=== PATIENT | female | born 1985 | race African-American/Black ===

== ENCOUNTER → 2016-07-05 | Outpatient (CLI) | payer OTHER ==
[~2016-07-05] MED LIST: ACET-1311 PO; BCPILLS PO; IBUP600T44 PO; MELA1TAB5 PO; OMEG10007 PO; ONDA4TAB10 SL; PRENTAB26 PO; PRT/20 PO; VITACAP26 PO
== END | disposition home or self-care (01) ==
LOC: C.PAPS 12:30
PROVIDERS: ATTEND Physician Assistant
DX: Z12.4 Encounter for screening for malignant neoplasm of cervix (principal)

== ENCOUNTER → 2016-07-05 | Outpatient (CLI) | payer OTHER ==
[2016-07-07 02:35] LABS: CHLAMYDIA TRACH RNA*** NOT DETECTED (NOT DETECTED); GC (NEIS GONORRHOEAE)RNA** NOT DETECTED (NOT DETECTED)
== END | disposition home or self-care (01) ==
LOC: C.LABSPEC 11:14
PROVIDERS: ATTEND Physician Assistant
DX: Z01.419 Encounter for gynecological examination (general) (routine) without abnormal findings (principal)

== ENCOUNTER 2016-12-21 09:11 | Emergency (ER) | payer OTHER ==
[~2016-12-21] VITALS: Ht 165.1 cm; Wt 64.4 kg
[~2016-12-21 09:11] MED LIST changes: -BCPILLS PO; -MELA1TAB5 PO; -OMEG10007 PO; -ONDA4TAB10 SL; -PRT/20 PO; -VITACAP26 PO
[2016-12-21 09:14] VITALS: TEMP 36.9; Ht 165.1 cm; Wt 64.4 kg
[2016-12-21 09:58] LABS: BASO % 0.4 %; BASO ABS # 0.02 K/uL (0-0.2); COMPLETE YES; EOS % 3.2 %; IG% 0.2 %; LYMPH % 38.4 %; MEAN CELL VOLUME 94.1 fL (80-100); MEAN CORPUSCULAR HEMOGLOBIN 31.7 pg (25-34); MEAN CORPUSCULAR HGB CONC 33.7 g/dl (32-36); MONO % 6.3 %; NEUT % 51.5 %; PLATELET COUNT 262 K/uL (130-400); RED BLOOD COUNT 4.04 M/uL (4.2-5.4); WHITE BLOOD COUNT 4.95 K/uL (4.8-10.8)
[2016-12-21] MEDS ORDERED: SODIUM CHLORIDE 0.9% 1000ML 1,000 ML IV STA (10:00)
[2016-12-21] MEDS ORDERED: ONDANSETRON INJ 2 MG/ML 2 ML VIAL IV STA (10:00)
[2016-12-21 10:18] LABS: BUN/CREATININE RATIO 12.7 (10-20); CALCIUM 9.5 mg/dl (8.5-10.1); CREATININE 0.78 mg/dl (0.60-1.20); POTASSIUM 3.7 mmol/L (3.5-5.1)
[2016-12-21 10:21] LABS: ALB/GLOB RATIO 1.1 (0.9-2)
[2016-12-21 10:45] LABS: PREG INTERNAL NEGATIVE QC NEG CLEAR BACKGROUND; PREG INTERNAL POSITIVE QC POS CONTROL LINE
[2016-12-21] MEDS ORDERED: ALUMINUM/MAGNESIUM SUSP 30 ML UDC PO STA (11:01)
[2016-12-21] MEDS ORDERED: LIDOCAINE HCL 2% VISC SOLN 20 ML UDC PO STA (11:01)
[2016-12-21 11:21] LABS: URINE APPEARANCE CLEAR (CLEAR); URINE BILIRUBIN NEG (NEG); URINE COLOR DK YELLOW; URINE NITRITE NEG (NEG); URINE PH 7.5 (4.5-7.5); URINE SPECIFIC GRAVITY 1.023 (1.000-1.030); UROBILINOGEN NEG (NEG); ZZUR CULT IF INDIC CLEAN CATCH NO
[2016-12-21 11:24] LABS: MANUAL MICROSCOPIC REQUIRED? NO; REVIEW REQ? NO
--- NOTE | 2016-12-21 11:28 | DIAGNOSTIC IMAGING REPORT ---
PA CHEST WITH ABDOMINAL SERIES CLINICAL HISTORY: Vomiting. FINDINGS: A PA chest radiograph is obtained. No prior studies are available for comparison at the time of dictation. The cardiomediastinal silhouette is unremarkable. The lungs and pleural spaces are clear. No pneumothorax is seen. The bony thorax is grossly intact. Supine and erect abdominal radiographs are obtained. No prior studies are available for comparison at the time of dictation. There is a nonobstructed abdominal bowel gas pattern. Ill-defined radiodense material projecting over the colon likely represents a hypodense ingestion. No evidence of intraperitoneal free air is seen. There nonobstructing renal calculi are suspected.. The lumbosacral spine and bony pelvis appear intact. IMPRESSION: 1. No active disease in the chest. 2. Nonobstructed abdominal bowel gas pattern. 3. Suspect nonobstructing renal calculi. Electronically signed by: Fidencio Eisenberg M.D. 12/21/2016 11:27 AM Dictated Date/Time: 12/21/2016 11:26 AM
[2016-12-21] MEDS ORDERED: PRT/20 PO (11:37)
[2016-12-21] MEDS ORDERED: ONDA4TAB10 SL (11:38)
[2016-12-21 12:10] VITALS: BP 108/74; PULSE 78; O2SAT 100
--- NOTE | 2016-12-21 15:02 | Pharmacy Progress Note ---
ED Pharmacist Progress Note Date of Service: Dec 21, 2016. Tamera from [facility] called to ask if the patient's prescription for zofran ODT tablets could be switched to regular as her insurance would not cover the original formulation. I confirmed with Dr. Majano who approved this change. I then called Tamera back at [phone] to relay the information.
--- NOTE | 2016-12-21 16:48 | EMERGENCY ROOM VISIT NOTE ---
History Report prepared by Mariana: Gilda Calloway Under the Supervision of: Dr. Kerwin Majano M.D. First contact with patient: 09:40 Chief Complaint: ABDOMINAL PAIN Stated Complaint: GASTROINTESTIONAL ISSUES Nursing Triage Summary: Abd pain, nausea, vomiting for approx 2 days. Abd pain comes and goes, none currently. History of Present Illness The patient is a 31 year old female who presents to the Emergency Room with complaints of persistent heartburn starting 2 days ago. She has had heartburn before, but never this bad. She states the heartburn is severe. The symptoms worsen with lying down. She has taken femi seltzer and Pepto Bismol to no significant relief. The patient was eating 2 days ago when she felt something get stuck in her throat. She felt like the food had gone down, but her esophagus felt swollen. Since then, anytime she tries to eat or drink, everything has been coming back up. Yesterday, she vomited up a piece of kale that she had eaten the day before. The kale came back up whole and seemingly undigested leading her to think she has low stomach acid. After vomiting yesterday, she has been able to keep some food down. She was able to eat chicken noodle soup. She has not vomited since then. She currently has no appetite and is still feeling nauseous. She has not eaten today. Nothing feels stuck in her esophagus anymore. She denies having any pain anywhere. She denies any fever, diarrhea, hematochezia, melena, urinary symptoms, vaginal discharge, or vaginal bleeding. Her last BM was last night. Her bowel movements have been normal. She has a family history of GERD. She notes that she is used to eating quickly and food seems to get stuck when she is eating slowly. She has not seen a GI doctor. Her menstrual period just ended. It was irregular which she attributes to starting a new control pill. 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 Over the past few months, she has been switching to a vegan diet. Source of History: patient Onset: 2 days ago Position: other (global) Symptom Intensity: severe Quality: other (heartburn) Timing: other (persistent) Modifying Factors (Worsening): other (lying down) Associated Symptoms: + nausea, + vomiting, No fevers, No abdominal pain, No melena, No hematochezia, No diarrhea, No urinary symptoms Note: Pt denies vaginal bleeding/discharge. Review of Systems See HPI for pertinent positives & negatives. A total of 10 systems reviewed and were otherwise negative. Past Medical & Surgical Medical Problems: (1) DVT (deep venous thrombosis) (2) Vaginal delivery Family History Cancer Diabetes mellitus Heart disease Hypertension Lung disease Social History Smoking Status: Never Smoker Marital Status: single Housing Status: lives with family Occupation Status: employed Current/Historical Medications Scheduled Ondasetron Odt (Zofran Odt), 4 MG SL Q6H Pantoprazole (Protonix), 20 MG PO DAILY Allergies Coded Allergies: No Known Allergies (Unverified , 04/20/11) Physical Exam Vital Signs Date Time Temp Pulse Resp B/P (MAP) Pulse Ox O2 Delivery O2 Flow Rate FiO2 12/21/16 12:10 78 16 108/74 100 12/21/16 11:48 82 111/75 99 12/21/16 09:14 36.9 84 16 116/74 97 Room Air Physical Exam Constitutional: Vital signs reviewed. Eyes: Pupils are equal round reactive to light. Conjunctiva are noninjected. ENT: Pharynx is clear without erythema or exudate. Mucous membranes are moist. Neck supple without meningeal signs. Respiratory: Clear to auscultation bilaterally. Breath sounds are equal bilaterally. Cardiovascular: Regular rate and rhythm. No rubs or gallops. GI: Soft, nondistended and nontender. Bowel sounds are present. Musculoskeletal: No peripheral edema. No lower extremity tenderness. Integumentary: No cyanosis. Neurological: The patient is awake and alert. No focal deficits. Psychiatric: Normal affect. Medical Decision & Procedures ER Provider Diagnostic Interpretation: X-ray results as stated below per interpretation by me and the radiologist: PA CHEST WITH ABDOMINAL SERIES CLINICAL HISTORY: Vomiting. FINDINGS: A PA chest radiograph is obtained. No prior studies are available for comparison at the time of dictation. The cardiomediastinal silhouette is unremarkable. The lungs and pleural spaces are clear. No pneumothorax is seen. The bony thorax is grossly intact. Supine and erect abdominal radiographs are obtained. No prior studies are available for comparison at the time of dictation. There is a nonobstructed abdominal bowel gas pattern. Ill-defined radiodense material projecting over the colon likely represents a hypodense ingestion. No evidence of intraperitoneal free air is seen. There nonobstructing renal calculi are suspected.. The lumbosacral spine and bony pelvis appear intact. IMPRESSION: 1. No active disease in the chest. 2. Nonobstructed abdominal bowel gas pattern. 3. Suspect nonobstructing renal calculi. Electronically signed by: Fidencio Eisenberg M.D. 12/21/2016 11:27 AM Dictated Date/Time: 12/21/2016 11:26 AM Laboratory Results 12/21/16 09:40 Red Blood Count 4.04, Mean Corpuscular Volume 94.1, Mean Corpuscular Hemoglobin 31.7, Mean Corpuscular Hemoglobin Concent 33.7, Mean Platelet Volume 11.0, Neutrophils (%) (Auto) 51.5, Lymphocytes (%) (Auto) 38.4, Monocytes (%) (Auto) 6.3, Eosinophils (%) (Auto) 3.2, Basophils (%) (Auto) 0.4, Neutrophils # (Auto) 2.55, Lymphocytes # (Auto) 1.90, Monocytes # (Auto) 0.31, Eosinophils # (Auto) 0.16, Basophils # (Auto) 0.02 12/21/16 09:40 Test 12/21/16 09:40 12/21/16 11:10 White Blood Count 4.95 K/uL (4.8-10.8) Red Blood Count 4.04 M/uL (4.2-5.4) Hemoglobin 12.8 g/dL (12.0-16.0) Hematocrit 38.0 % (37-47) Mean Corpuscular Volume 94.1 fL (80-100) Mean Corpuscular Hemoglobin 31.7 pg (25-34) Mean Corpuscular Hemoglobin Concent 33.7 g/dl (32-36) Platelet Count 262 K/uL (130-400) Mean Platelet Volume 11.0 fL (7.4-10.4) Neutrophils (%) (Auto) 51.5 % Lymphocytes (%) (Auto) 38.4 % Monocytes (%) (Auto) 6.3 % Eosinophils (%) (Auto) 3.2 % Basophils (%) (Auto) 0.4 % Neutrophils # (Auto) 2.55 K/uL (1.4-6.5) Lymphocytes # (Auto) 1.90 K/uL (1.2-3.4) Monocytes # (Auto) 0.31 K/uL (0.11-0.59) Eosinophils # (Auto) 0.16 K/uL (0-0.5) Basophils # (Auto) 0.02 K/uL (0-0.2) RDW Standard Deviation 41.8 fL (36.4-46.3) RDW Coefficient of Variation 12.2 % (11.5-14.5) Immature Granulocyte % (Auto) 0.2 % Immature Granulocyte # (Auto) 0.01 K/uL (0.00-0.02) Anion Gap 8.0 mmol/L (3-11) Est Creatinine Clear Calc Drug Dose 95.8 ml/min Estimated GFR () 119.1 Estimated GFR (Non- 102.7 BUN/Creatinine Ratio 12.7 (10-20) Calcium Level 9.5 mg/dl (8.5-10.1) Total Bilirubin 3.5 mg/dl (0.2-1) Aspartate Amino Transf (AST/SGOT) 15 U/L (15-37) Alanine Aminotransferase (ALT/SGPT) 14 U/L (12-78) Alkaline Phosphatase 38 U/L (45-117) Total Protein 7.5 gm/dl (6.4-8.2) Albumin 3.9 gm/dl (3.4-5.0) Globulin 3.6 gm/dl (2.5-4.0) Albumin/Globulin Ratio 1.1 (0.9-2) Lipase 95 U/L (73-393) Human Chorionic Gonadotropin, Qual NEG (NEG) Urine Color DK YELLOW Urine Appearance CLEAR (CLEAR) Urine pH 7.5 (4.5-7.5) Urine Specific [place] 1.023 (1.000-1.030) Urine Protein NEG (NEG) Urine Glucose (UA) NEG (NEG) Urine Ketones 1+ (NEG) Urine Occult Blood NEG (NEG) Urine Nitrite NEG (NEG) Urine Bilirubin NEG (NEG) Urine Urobilinogen NEG (NEG) Urine Leukocyte Esterase NEG (NEG) Urine Test NEG (NEG) Laboratory results as reviewed by me. Medications Administered Medications (Trade) Dose Ordered Sig/Ismael Route Start Time Stop Time Status Last Admin Dose Admin Sodium Chloride 1,000 ml @ 999 mls/hr Q1H1M STAT IV 12/21/16 10:00 12/21/16 11:00 DC 12/21/16 10:18 999 MLS/HR Ondansetron HCl (Zofran Inj) 4 mg NOW STAT IV 12/21/16 10:00 12/21/16 10:01 DC 12/21/16 10:19 4 MG Lidocaine HCl (Viscous Lidocaine 2% Soln) 10 ml NOW STAT PO 12/21/16 11:01 12/21/16 11:03 DC 12/21/16 11:46 10 ML Al Hydroxide/Mg Hydroxide (Maalox Susp) 30 ml NOW STAT PO 12/21/16 11:01 12/21/16 11:03 DC 12/21/16 11:46 30 ML ED Course 0946: The patient was evaluated in room B5. A complete history and physical exam was performed. 1000: Zofran Inj 4 mg IV, NSS 1000 ml @ 999 mls/hr IV. 1101: Maalox Susp 30 ml PO, Lidocaine HCl 10 ml PO. 1131: I reevaluated the patient. She is feeling better. She no longer has nausea. I discussed the test results with her. I discussed dietary restrictions with her. She verbalized understanding and agreement. She was discharged home. She will follow up with GI. Medical Decision This is a 31-year-old female who presents with difficulty swallowing and nausea. Differential diagnosis includes bowel obstruction, dehydration, GERD, esophagitis, esophageal mass, web or stricture, achalasia, . I did perform a limited focused review of portions of the patient's old chart on the electronic medical record. The patient has had no recent pertinent visits to this hospital. I did evaluate the patient as noted above. The patient is presenting with difficulty swallowing after she felt like something got stuck in her throat 2 days ago. She has vomited since then and has been able to keep down liquids and some soup. She denies any abdominal pain or fever. IV access was established. I did order and personally review the patient's abdominal and chest x-ray as described above. There is no evidence of obstruction. No signs of achalasia. I did order and review the patient's blood work as noted in the electronic medical record. Labwork is unremarkable. test is negative. Urinalysis is unremarkable as well. I did treat the patient with Zofran IV and normal saline IV. She was also given a GI cocktail. She does feel better on reassessment. I did recommend she follow up with Dr. Patel of gastroenterology for further evaluation and EGD. She was discharged with a prescription for Protonix and Zofran. She was given return instructions as outlined below. Medication Reconcilliation Current Medication List: was personally reviewed by me Blood Pressure Screening Patient's blood pressure: Normal blood pressure Blood pressure disposition: Did not require urgent referral Impression Primary Impression: Dysphagia Additional Impressions: Vomiting Dehydration Scribe Attestation The scribe's documentation has been prepared under my direct and personally reviewed by me in its entirety. I confirm that the note above accurately reflects all work, treatment, procedures, and medical decision making performed by me. Departure Information Dispostion Home / Self-Care Prescriptions Ondasetron Odt (ZOFRAN ODT) 4 Mg Tab 4 MG SL Q6H for Nausea, #10 TAB Prov: Kerwin Majano M.D. 12/21/16 Pantoprazole (Protonix) 20 Mg Tab 20 MG PO DAILY, #30 TAB Prov: Kerwin Majano M.D. 12/21/16 Referrals Sherry Patel M.D. Reyna Eduardo, DO Forms HOME CARE DOCUMENTATION FORM, IMPORTANT VISIT INFORMATION Patient Instructions My [facility] Additional Instructions You have been examined and treated today on an emergency basis only. This is not a substitute for, or an effort to provide, complete comprehensive medical care. It is impossible to recognize and treat all injuries or illnesses in a single emergency department visit. It is therefore important that you follow up closely with your physician and Dr. Patel of gastroenterology. Call as soon as possible for an appointment. Return for worsening symptoms or if you develop fever, rectal bleeding, black or tarry stools or any other concerning symptoms. Problem Qualifiers Primary Impression: Dysphagia Dysphagia type: unspecified Qualified Codes: R13.10 - Dysphagia, unspecified Additional Impressions: Vomiting Vomiting type: unspecified Vomiting Intractability: non-intractable Nausea presence: with nausea Qualified Codes: R11.2 - Nausea with vomiting, unspecified
== END 2016-12-21 12:12 | disposition home or self-care (01) ==
LOC: C.EDB 09:14
DX: R13.10 Dysphagia, unspecified (principal); R11.2 Nausea with vomiting, unspecified; E86.0 Dehydration; Z86.718 Personal history of other venous thrombosis and embolism; Z80.9 Family history of malignant neoplasm, unspecified; Z83.3 Family history of diabetes mellitus; Z83.79 Family history of other diseases of the digestive system; Z82.49 Family history of ischemic heart disease and other diseases of the circulatory system; Z83.6 Family history of other diseases of the respiratory system; Z79.899 Other long term (current) drug therapy

== ENCOUNTER 2017-01-10 08:53 | Emergency (ER) | payer OTHER ==
[~2017-01-10] VITALS: Ht 165.1 cm; Wt 64.3 kg
[~2017-01-10 08:53] MED LIST changes: -ACET-1311 PO; -IBUP600T44 PO; +ONDA4TAB10 SL; -PRENTAB26 PO; +PRT/20 PO
[2017-01-10 09:07] VITALS: TEMP 36.8; Ht 165.1 cm; Wt 64.3 kg
[2017-01-10] MEDS ORDERED: KETOROLAC TROMETHAMINE 30 MG/ML VIAL IV STA (09:46)
[2017-01-10 09:53] LABS: HEMATOCRIT 42.7 % (37-47); MEAN CELL VOLUME 93.4 fL (80-100); MEAN CORPUSCULAR HEMOGLOBIN 31.9 pg (25-34); MEAN CORPUSCULAR HGB CONC 34.2 g/dl (32-36); MEAN PLATELET VOLUME 11.3 fL (7.4-10.4); PLATELET COUNT 228 K/uL (130-400); RED BLOOD COUNT 4.57 M/uL (4.2-5.4); WHITE BLOOD COUNT 7.88 K/uL (4.8-10.8)
[2017-01-10 10:00] LABS: INR 0.9 (0.9-1.1); PARTIAL THROMBOPLASTIN RATIO 1.1; PROTHROMBIN TIME (PATIENT) 10.1 SECONDS (9.0-12.0)
[2017-01-10 10:02] LABS: POINT OF CARE TROPONIN I < 0.030 ng/ml (0-0.045)
[2017-01-10 10:12] LABS: BUN/CREATININE RATIO 7.7 (10-20); CALCIUM 9.1 mg/dl (8.5-10.1); CREATININE 0.96 mg/dl (0.60-1.20); POTASSIUM 3.6 mmol/L (3.5-5.1)
[2017-01-10 10:17] LABS: ALB/GLOB RATIO 0.9 (0.9-2); CKMB/CK RATIO 0.5 (0-3.0)
--- NOTE | 2017-01-10 10:20 | DIAGNOSTIC IMAGING REPORT ---
CHEST ONE VIEW PORTABLE HISTORY: ED eval, left chest pain, short of breath COMPARISON: Chest and abdominal series 12/21/2016. FINDINGS: The lungs are clear. Cardiac silhouette is normal in size. No pleural effusions. No pneumothorax. IMPRESSION: No acute process. Electronically signed by: Adan Sifuentes M.D. 01/10/2017 10:19 AM Dictated Date/Time: 01/10/2017 10:18 AM
--- NOTE | 2017-01-10 10:23 | EMERGENCY ROOM VISIT NOTE ---
History Report prepared by Mariana: Johanne Garcia Under the Supervision of: Dr. Fidencio Boswell M.D. First contact with patient: 09:41 Chief Complaint: BACK PAIN Stated Complaint: BACK PAIN,TROUBLE BREATHING History of Present Illness The patient is a 31 year old female who presents to the Emergency Room with complaints of worsening left sided back pain for the past couple of days. She states that she has had a "knot" in her left upper back, under her shoulder blade for years. This is the area where her pain is now, but she states that it feels different than her usual pain. The patient rates her pain as an 8/10 in severity. It radiates down her left ribs and is starting to wrap around to the front. Movement exacerbates her pain. She is also experiencing some shortness of breath that worsens when she lies flat and improves with being upright. The patient reports pain with inspiration that she rates as a 2/10. She denies any recent heavy lifting, other than her 5 year old son. The patient is on control and states that she has had blood clots in the past due to a different previous control. She has been taking Tylenol without relief of her symptoms. She notes that two weeks ago she had a "ball that moved up my left leg." She denies any other pain or swelling in her legs. Source of History: patient Onset: a couple of days ago Position: back (upper) Symptom Intensity: 8/10 Quality: other (radiating) Timing: worsening Modifying Factors (Worsening): movement, other (laying flat) Associated Symptoms: + SOB Review of Systems See HPI for pertinent positives & negatives. A total of 10 systems reviewed and were otherwise negative. Past Medical & Surgical Medical Problems: (1) DVT (deep venous thrombosis) (2) Vaginal delivery Family History Cancer Diabetes mellitus Heart disease Hypertension Lung disease Social History Smoking Status: Never Smoker Marital Status: single Housing Status: lives with family Occupation Status: employed Current/Historical Medications Scheduled Control Pills ( Control Pills), 1 TAB PO DAILY Fish Oil ([place]-3), 1 CAP PO DAILY Melatonin (Kp Melatonin), 10 MG PO HS Vitamins C & E (Vitamin C), 1 CAP PO DAILY Allergies Coded Allergies: No Known Allergies (Unverified , 01/10/17) Physical Exam Vital Signs Date Time Temp Pulse Resp B/P (MAP) Pulse Ox O2 Delivery O2 Flow Rate FiO2 01/10/17 11:28 78 20 118/41 99 01/10/17 10:22 100 Room Air 01/10/17 10:19 68 20 96/77 100 Room Air 01/10/17 10:01 65 01/10/17 09:07 36.8 67 18 119/78 100 Room Air Physical Exam GENERAL: Patient is in no acute distress. HEENT: No acute trauma, normocephalic atraumatic, mucous membranes moist, no nasal congestion, no scleral icterus. NECK: No stridor, no adenopathy, no meningismus, trachea is midline. LUNGS: Clear to auscultation bilaterally, no wheeze, no rhonchi, breath sounds equal. HEART: Without murmurs gallops or rubs, regular rate and rhythm. ABDOMEN: Soft, nontender, bowel sounds positive, no hernias, no peritonitis. BACK: Nontender left thoracic back, no rash, pain worsens with movement. EXTREMITIES: No cyanosis or edema, full range of motion of all the joints without pain or difficulty, no signs for acute trauma. NEUROLOGIC: Oriented x 3, no acute motor or sensory deficits, no focal weakness. SKIN: No rash, no jaundice, no diaphoresis. Medical Decision & Procedures ER Provider Diagnostic Interpretation: Radiology results as stated below per my review and radiologist interpretation: CHEST ONE VIEW PORTABLE HISTORY: ED eval, left chest pain, short of breath COMPARISON: Chest and abdominal series 12/21/2016. FINDINGS: The lungs are clear. Cardiac silhouette is normal in size. No pleural effusions. No pneumothorax. IMPRESSION: No acute process. Electronically signed by: Adan Sifuentes M.D. 01/10/2017 10:19 AM Dictated Date/Time: 01/10/2017 10:18 AM (CHEST FOR PE) ANGIO WITH CLINICAL HISTORY: 31 years-old Female presenting with trouble breathing, chest and back pain, clinical concern for pulmonary embolus versus thoracic aortic injury. TECHNIQUE: Multidetector CT angiography of the chest was performed after administration of intravenous contrast. 3-D volumetric and/or maximum intensity projection (MIP) images were subsequently reconstructed for review. IV contrast: 91 mL of Optiray 320. A dose lowering technique was used consistent with the principles of ALARA (as low as reasonably achievable). COMPARISON: None. CT DOSE (mGy.cm): The estimated cumulative dose is 195.73 mGy.cm. FINDINGS: Medical Office Supervisor topogram: Unremarkable. Pulmonary vasculature: The study is adequate for assessment of the pulmonary vascular tree. No filling defect within the pulmonary arteries to suggest embolus. Main pulmonary artery is not enlarged. No flattening of the interventricular septum. No intracardiac intracardiac filling defect. No reflux of contrast into the hepatic veins. Remaining chest: On soft tissue windows, anterior mediastinal soft tissue suggests residual thymus. No axillary, supraclavicular, hilar, or mediastinal lymphadenopathy. Normal aorta. Normal heart size. No pericardial or pleural effusion. Multiple bilateral nonobstructing renal calculi measuring up to 5 mm. On lung windows, small cyst with a thin perceptible wall noted in the right apex (series 4 image 213). Suggestion of minimal groundglass centrilobular opacities primarily in the upper lobes. Minimal bronchial wall thickening suggested. On bone windows, normal osseous structures. IMPRESSION: 1. No evidence of pulmonary embolus. No evidence of acute aortic injury. 2. No focal infiltrate to suggest pneumonia. 3. Suggestion of minimal groundglass centrilobular opacities. If the patient has a history of smoking, this could represent mild respiratory bronchiolitis. Alternatively, this may be artifactual secondary to opacification of the central lobular pulmonary arterioles. 4. Bilateral nephrolithiasis. Electronically signed by: Rogelio Morocho M.D. 01/10/2017 11:03 AM Dictated Date/Time: 01/10/2017 10:47 AM Laboratory Results 01/10/17 09:34 01/10/17 09:34 Test 01/10/17 09:34 01/10/17 09:44 Red Blood Count 4.57 M/uL (4.2-5.4) Mean Corpuscular Volume 93.4 fL (80-100) Mean Corpuscular Hemoglobin 31.9 pg (25-34) Mean Corpuscular Hemoglobin Concent 34.2 g/dl (32-36) RDW Standard Deviation 41.8 fL (36.4-46.3) RDW Coefficient of Variation 12.3 % (11.5-14.5) Mean Platelet Volume 11.3 fL (7.4-10.4) Prothrombin Time 10.1 SECONDS (9.0-12.0) Prothromb Time International Ratio 0.9 (0.9-1.1) Activated Partial Thromboplast Time 27.5 SECONDS (21.0-31.0) Partial Thromboplastin Ratio 1.1 Anion Gap 4.0 mmol/L (3-11) Est Creatinine Clear Calc Drug Dose 77.8 ml/min Estimated GFR () 92.6 Estimated GFR (Non- 79.9 BUN/Creatinine Ratio 7.7 (10-20) Calcium Level 9.1 mg/dl (8.5-10.1) Total Bilirubin 2.6 mg/dl (0.2-1) Aspartate Amino Transf (AST/SGOT) 12 U/L (15-37) Alanine Aminotransferase (ALT/SGPT) 16 U/L (12-78) Alkaline Phosphatase 45 U/L (45-117) Total Creatine Kinase 160 U/L (26-192) Creatine Kinase MB 0.8 ng/ml (0.5-3.6) Creatine Kinase MB Ratio 0.5 (0-3.0) Total Protein 8.7 gm/dl (6.4-8.2) Albumin 4.2 gm/dl (3.4-5.0) Globulin 4.5 gm/dl (2.5-4.0) Albumin/Globulin Ratio 0.9 (0.9-2) Bedside D-Dimer > 450 ng/mlFEU (0-450) Bedside Troponin I < 0.030 ng/ml (0-0.045) Laboratory results reviewed by me. Medications Administered Medications (Trade) Dose Ordered Sig/Ismael Route Start Time Stop Time Status Last Admin Dose Admin Ketorolac Tromethamine (Toradol Inj) 30 mg NOW STAT IV 01/10/17 09:46 01/10/17 09:51 DC 01/10/17 10:17 30 MG ECG Indication: SOB/dyspnea Rate (beats per minute): 61 Rhythm: normal sinus Findings: no acute ischemic change, no ectopy ED Course 0941: The patient was evaluated in room B2. A complete history and physical exam was performed. 0946: Toradol 30 mg IV 1027: I updated the patient on her results. I discussed the risks and benefits associated with a CT scan. She is in agreement with a CT scan. 1112: I reassessed the patient at this time. She is feeling better and resting comfortably. I discussed the results and treatment plan with the patient. I answered all pertaining questions that she had. She expressed understanding and verbalized agreement. The patient will be discharged home. Medical Decision Differential diagnoses includes PE, musculoskeletal pain, pneumonia, pneumothorax, shingles, cardiac ischemia. There is no leukocytosis or concerning anemia. No significant electrolyte abnormality, kidney failure or hepatitis. There is no coagulopathy. EKG shows a normal sinus rhythm, no acute ischemia. Cardiac enzyme testing 1 is not consistent with acute cardiac injury. Chest film does not show mediastinal widening, pneumonia or pneumothorax. D-dimer testing was positive. Chest CT shows no PE, no evidence for aortic dissection. Some ground glass opacities were noted. The patient received IV Toradol for pain, she is more comfortable. She was reassured by her testing. She is being discharged home. The pain is likely musculoskeletal. Medication Reconcilliation Current Medication List: was personally reviewed by me Blood Pressure Screening Patient's blood pressure: Normal blood pressure Impression Primary Impression: Left-sided thoracic back pain Scribe Attestation The scribe's documentation has been prepared under my direction and personally reviewed by me in its entirety. I confirm that the note above accurately reflects all work, treatment, procedures, and medical decision making performed by me. Departure Information Dispostion Home / Self-Care Referrals Reyna Eduardo DO (PCP) Forms HOME CARE DOCUMENTATION FORM, IMPORTANT VISIT INFORMATION Patient Instructions My [facility] Additional Instructions massage, gentle stretching, heat no heavy lifting aleve as directed for the next 5 days return if worsening no blood clot by CT scan today follow with your doctor for repeat chest film as suggested--incidental finding we discussed that was noted on CT scan Problem Qualifiers Primary Impression: Left-sided thoracic back pain
[2017-01-10] MEDS ORDERED: MELA1TAB5 PO (10:59)
[2017-01-10] MEDS ORDERED: VITACAP26 PO (10:59)
[2017-01-10] MEDS ORDERED: OMEG10007 PO (10:59)
[2017-01-10] MEDS ORDERED: BCPILLS PO (10:59)
--- NOTE | 2017-01-10 11:05 | DIAGNOSTIC IMAGING REPORT ---
(CHEST FOR PE) ANGIO WITH CLINICAL HISTORY: 31 years-old Female presenting with trouble breathing, chest and back pain, clinical concern for pulmonary embolus versus thoracic aortic injury. TECHNIQUE: Multidetector CT angiography of the chest was performed after administration of intravenous contrast. 3-D volumetric and/or maximum intensity projection (MIP) images were subsequently reconstructed for review. IV contrast: 91 mL of Optiray 320. A dose lowering technique was used consistent with the principles of ALARA (as low as reasonably achievable). COMPARISON: None. CT DOSE (mGy.cm): The estimated cumulative dose is 195.73 mGy.cm. FINDINGS: Long Term topogram: Unremarkable. Pulmonary vasculature: The study is adequate for assessment of the pulmonary vascular tree. No filling defect within the pulmonary arteries to suggest embolus. Main pulmonary artery is not enlarged. No flattening of the interventricular septum. No intracardiac intracardiac filling defect. No reflux of contrast into the hepatic veins. Remaining chest: On soft tissue windows, anterior mediastinal soft tissue suggests residual thymus. No axillary, supraclavicular, hilar, or mediastinal lymphadenopathy. Normal aorta. Normal heart size. No pericardial or pleural effusion. Multiple bilateral nonobstructing renal calculi measuring up to 5 mm. On lung windows, small cyst with a thin perceptible wall noted in the right apex (series 4 image 213). Suggestion of minimal groundglass centrilobular opacities primarily in the upper lobes. Minimal bronchial wall thickening suggested. On bone windows, normal osseous structures. IMPRESSION: 1. No evidence of pulmonary embolus. No evidence of acute aortic injury. 2. No focal infiltrate to suggest pneumonia. 3. Suggestion of minimal groundglass centrilobular opacities. If the patient has a history of smoking, this could represent mild respiratory bronchiolitis. Alternatively, this may be artifactual secondary to opacification of the central lobular pulmonary arterioles. 4. Bilateral nephrolithiasis. Electronically signed by: Rogelio Morocho M.D. 01/10/2017 11:03 AM Dictated Date/Time: 01/10/2017 10:47 AM
[2017-01-10 11:28] VITALS: BP 118/41; PULSE 78; O2SAT 99
== END 2017-01-10 11:30 | disposition home or self-care (01) ==
LOC: C.EDB 08:55
DX: M54.6 Pain in thoracic spine (principal); Z86.718 Personal history of other venous thrombosis and embolism; Z79.899 Other long term (current) drug therapy; Z80.9 Family history of malignant neoplasm, unspecified; Z83.3 Family history of diabetes mellitus; Z82.49 Family history of ischemic heart disease and other diseases of the circulatory system

== ENCOUNTER 2017-04-04 17:30 | Emergency (ER) | payer OTHER ==
[~2017-04-04] VITALS: Ht 165.1 cm; Wt 66.6 kg
[~2017-04-04 17:30] MED LIST changes: +BCPILLS PO; +MELA1TAB5 PO; +MULT-506 PO; +OMEG10007 PO; -ONDA4TAB10 SL; -PRT/20 PO; +VITACAP26 PO
[2017-04-04 17:32] VITALS: BP 118/78; PULSE 87; TEMP 36.7; O2SAT 99; Ht 165.1 cm; Wt 66.6 kg
[2017-04-04] MEDS ORDERED: CEPH500C PO (17:49)
--- NOTE | 2017-04-04 18:26 | EMERGENCY ROOM VISIT NOTE ---
History First contact with patient: 17:40 Chief Complaint: EAR PAIN Stated Complaint: LEFT EAR CYST, INFECTION History of Present Illness The patient is a 31 year old female who presents to the Emergency Room with complaints of a growing lump on her left ear. The patient reports that she noticed a lump 1.5 weeks ago. She denies any trauma to the ear, or prior piercing in this region. She also denies any prior history of dermoid cyst to the ER. The patient reports that she is going out of town this weekend, and tried to call her PCP and edge blacker who could not schedule an appointment for her. She elected to come to the emergency department. She reports pain when laying on it, otherwise rates her discomfort a 1 out of 10. Review of Systems 10 system review was performed and was negative except for pertinent positives and negatives as indicated in history of present illness Past Medical/Surgical History Medical Problems: (1) DVT (deep venous thrombosis) (2) Vaginal delivery Family History Cancer Diabetes mellitus Heart disease Hypertension Lung disease Social History Smoking Status: Never Smoker Marital Status: single Housing Status: lives with family Occupation Status: employed Current/Historical Medications Scheduled Control Pills ( Control Pills), 1 TAB PO QAM Cephalexin Monohydrate (Keflex), 500 MG PO TID Multivitamin (Multivitamin), 1 TAB PO DAILY Physical Exam Vital Signs Date Time Temp Pulse Resp B/P (MAP) Pulse Ox O2 Delivery O2 Flow Rate FiO2 04/04/17 17:32 36.7 87 16 118/78 99 Room Air Physical Exam CONSTITUTIONAL: Healthy and well nourished. HEENT: Examination of the left ear shows a soft skin color the-sized mass between the stem of the antihelix and helix. It is not erythematous or significantly tender to palpation. The posterior ear does not appear to be involved without any edema or erythema. NECK: Full active range of motion without discomfort. RESPIRATORY: Clear to auscultation bilaterally with no wheezing, crackles, rhonchi or stridor. CARDIOVASCULAR: Regular rate and rhythm with no murmurs, rubs or gallops. GASTROINTESTINAL: Bowel sounds present in all quadrants. MUSCULOSKELETAL: Full range of motion of all joints without discomfort. INTEGUMENTARY: No rash or other significant dermatologic conditions noted except as indicated in HEENT. NEUROLOGIC: No focal neurologic deficits noted. Medical Decision & Procedures ED Course Patient history and physical exam were performed. Nurse's notes were reviewed. Vital signs were reviewed and were normal. The patient was advised that the appearance is most consistent with a cyst. I did elect to treat the patient with Keflex 500 mg 3 times a day 7 days. She was instructed to follow-up with her edge blacker if the lesion persists or worsens. Ibuprofen or Tylenol as needed for pain. She was also encouraged to apply a warm moist compress to the ER for additional relief. The patient voiced understanding of all discharge instructions, and was happy with plan of care. Medical Decision Medication Reconcilliation Current Medication List: was personally reviewed by me Blood Pressure Screening Patient's blood pressure: Normal blood pressure Impression Primary Impression: Dermoid cyst of left ear Departure Information Dispostion Home / Self-Care Prescriptions Cephalexin Monohydrate (Keflex) 500 Mg Cap 500 MG PO TID for 7 Days, #21 CAP Prov: Pablo Engle PA 04/04/17 Forms HOME CARE DOCUMENTATION FORM, IMPORTANT VISIT INFORMATION Patient Instructions [facility] Additional Instructions Complete all Keflex antibiotics as prescribed. Intermittently apply a warm moist compress to the ER. Ibuprofen or Tylenol as needed for pain. Follow-up with your edge blacker if the cyst does not improve.
== END 2017-04-04 18:05 | disposition home or self-care (01) ==
LOC: C.EDB 17:31 → C.EDD 18:05
DX: D14.0 Benign neoplasm of middle ear, nasal cavity and accessory sinuses (principal); H92.02 Otalgia, left ear; Z86.718 Personal history of other venous thrombosis and embolism

== ENCOUNTER → 2017-04-19 | Day surgery (SDC) | payer OTHER ==
[2017-04-04 13:11] VITALS: Ht 165.1 cm; Wt 65.9 kg
[~2017-04-19] VITALS: Ht 165.1 cm; Wt 65.9 kg
[~2017-04-19] MED LIST changes: +LIDOCAINE HCL 2% 2 ML VIAL (20MG/ML) ONE; -MELA1TAB5 PO; -OMEG10007 PO; +PROPOFOL IV EMULSION 10 MG/ML 20 ML VIAL IV ONE; +SODIUM CHLORIDE 0.9% 500ML 500 ML IV ONE; -VITACAP26 PO
--- NOTE | 2017-04-19 14:19 | Endo History and Physical ---
History & Physical Date of Service: Apr 19, 2017. Chief Complaint: dysphagia Referring Physician: Dr. Reyna Eduardo History of Present Illness 31 yo female who presents for EGD secondary to dysphagia. Past Surgical History Hx Cardiac Surgery: No Hx Internal Defibrillator: No Hx Pacemaker: No Hx Abdominal Surgery: No Hx of Implantable Prosthesis: No Hx Post-Op Nausea and Vomiting: No Hx Cancer Surgery: No Hx Thoracic Surgery: No Hx Orthopedic: Yes (LT BUNIONECTOMY) Hx Urinary Tract Surgery: No Family History None Social History Smoking Status: Never Smoker Hx Substance Use: No Hx Alcohol Use: No Allergies Uncoded Allergies: CEFALEXIN (Allergy, Intermediate, skin itching, 04/19/17) Current Medications Reported Home Medications Medications Dose Route/Sig Max Daily Dose Days Date Category Multivitamin (Multivitamins) Tab 1 Tab PO DAILY 04/04/17 Reported Control Pills (Miscellaneous) Tab 1 Tab PO QAM 01/10/17 Reported Vital Signs Weight (Kilograms): 65.91 Height (Feet): 5 Height (Inches): 5 Date Time Temp Pulse Resp B/P (MAP) Pulse Ox O2 Delivery O2 Flow Rate FiO2 04/19/17 14:14 37.2 68 16 105/67 (80) 98 Room Air Physical Exam General Appearance: WD/WN, no apparent distress Respiratory/Chest: Auscultation: breath sounds normal Cardiovascular: Heart Auscultation: RRR Abdomen: Bowel Sounds: normal Inspection & Palpation: soft, non-distended, no tenderness, guarding & rebound Assessment and Plan Assessment: 31 yo female who presents for EGD secondary to dysphagia. Plan: Proceed with EGD.
--- NOTE | 2017-04-19 15:26 | GI REPORT ---
Procedure Date: 04/19/2017 2:25 PM Procedure: Upper GI endoscopy Indications: Dysphagia Medicines: Monitored Anesthesia Care Complications: No immediate complications. Estimated Blood Loss: Estimated blood loss: none. Procedure: Pre-Anesthesia Assessment: - Prior to the procedure, a History and Physical was performed, and patient medications and allergies were reviewed. The patient's tolerance of previous anesthesia was also reviewed. The risks and benefits of the procedure and the sedation options and risks were discussed with the patient. All questions were answered, and informed consent was obtained. Prior Anticoagulants: The patient has taken no previous anticoagulant or antiplatelet agents. ASA Grade Assessment: II - A patient with mild systemic disease. After reviewing the risks and benefits, the patient was deemed in satisfactory condition to undergo the procedure. After obtaining informed consent, the endoscope was passed under direct vision. Throughout the procedure, the patient's blood pressure, pulse, and oxygen saturations were monitored continuously. The scope was introduced through the mouth, and advanced to the second part of duodenum. The upper GI endoscopy was accomplished without difficulty. The patient tolerated the procedure well. Findings: The esophagus was normal. The stomach was normal. The examined duodenum was normal. Impression: - Normal esophagus. - Normal stomach. - Normal examined duodenum. - No specimens collected. Recommendation: - Resume previous diet. - Continue present medications. - Return to primary care physician as previously scheduled. Michael Levine, DO 04/19/2017 3:25:38 PM This report has been signed electronically. Note Initiated On: 04/19/2017 2:25 PM I attest to the content of the Intraoperative Record and orders documented therein, exceptions below
--- NOTE | 2017-04-19 15:38 | Discharge Instructions ---
Endoscopy Patient Instructions Date / Procedure(s) Performed Apr 19, 2017. EGD Allergy Information Uncoded Allergies: CEFALEXIN (Allergy, Intermediate, skin itching, 04/19/17) Discharge Date / Findings Apr 19, 2017. Normal EGD Medication Instructions OK to resume all medications today as prescribed Reported Home Medications Medications Dose Route/Sig Max Daily Dose Days Date Category Multivitamin (Multivitamins) Tab 1 Tab PO DAILY 04/04/17 Reported Control Pills (Miscellaneous) Tab 1 Tab PO QAM 01/10/17 Reported Provider Instructions Activity Restrictions - No exercising or heavy lifting for 24 hours. - Do not drink alcohol the day of the procedure. - Do not drive a car or operate machinery until the day after the procedure. - Do not make any important decisions or sign important papers in 24 hours after the procedure. Following Day: - Return to full activity which may include returning to work/school. Diet Start your diet with liquids and light foods (jello, soup, juice, toast). Then eat your usual diet if not nauseated. Treatment For Common After Affects For mild abdominal pain, bloating, or excessive gas: - Rest - Eat lightly - Lie on right side My office will contact you to schedule Barium swallow for further evaluation of symptoms Follow-Up Information Follow-up with Dr. Reyna Eduardo as scheduled Anesthesia Information What You Should Know You have had a procedure that required some medicine to reduce anxiety and discomfort. This treatment is called moderate sedation. After receiving the treatment, you may be sleepy, but you will be able to breathe on your own. The effects of the treatment may last for several hours. Follow these instructions along with Activity/Diet recommendations noted above: * Do NOT do anything where dizziness or clumsiness would be dangerous. * Rest quietly at home today, then you can be up and about tomorrow. * Have a responsible person stay with you the rest of today. * You may have had an I.V. today. If so, you may take the dressing off later today. Recommendations Call your doctor if: * Trouble breathing * Continuous vomiting for more than 24 hours * Temperature above 101 degrees * Severe abdominal pain or bloating * Pain not relieved by pain medicine ordered * There is increased drainage or redness from any incision * A large amount of rectal bleeding greater than 2-3 tablespoons. (If you had a polyp/s removed or have hemorrhoids, a small amount of blood - from the rectum is to be expected.) * You have any unanswered questions or concerns. IN THE EVENT OF A SERIOUS EMERGENCY, GO TO THE NEAREST EMERGENCY ROOM Your discharge instructions were prepared by provider Michael Levine. Patient Instructions Signature Page Sveta Mock Patient (or Guardian) Signature/Date: I have read and understand the instructions given to me by my caregivers. Caregiver/RN/Doctor Signature/Date: The above-named patient and/or guardian has received patient instructions on this date. + Original Patient Signature Page (only) stays with chart. Please make copy for patient.
--- NOTE | 2017-04-19 15:43 | Anesthesiology Progress Note ---
Anesthesia Post Op Note Date & Time Apr 19, 2017 at 15:43 Vital Signs Pain Intensity: 0 Vital Signs Past 12 Hours Date Time Temp Pulse Resp B/P (MAP) Pulse Ox O2 Delivery O2 Flow Rate FiO2 04/19/17 15:34 73 16 119/70 (86) 100 Room Air 04/19/17 15:13 71 16 99/59 (72) 98 Room Air 04/19/17 14:14 37.2 68 16 105/67 (80) 98 Room Air Notes Mental Status: alert / awake / arousable, participated in evaluation Pt Amnestic to Procedure: Yes Nausea / Vomiting: adequately controlled Pain: adequately controlled Airway Patency, RR, SpO2: stable & adequate BP & HR: stable & adequate Hydration State: stable & adequate Anesthetic Complications: no major complications apparent
[2017-04-19 15:45] VITALS: BP 111/70; PULSE 70; O2SAT 98
== END | disposition home or self-care (01) ==
LOC: C.GI 13:44
PROVIDERS: ATTEND Internal Medicine
DX: R13.10 Dysphagia, unspecified (principal); K21.9 Gastro-esophageal reflux disease without esophagitis; G47.33 Obstructive sleep apnea (adult) (pediatric); Z86.718 Personal history of other venous thrombosis and embolism; Z79.3 Long term (current) use of hormonal contraceptives

== ENCOUNTER → 2017-04-24 | Outpatient (CLI) | payer OTHER ==
[~2017-04-24] MED LIST changes: -LIDOCAINE HCL 2% 2 ML VIAL (20MG/ML) ONE; -PROPOFOL IV EMULSION 10 MG/ML 20 ML VIAL IV ONE; -SODIUM CHLORIDE 0.9% 500ML 500 ML IV ONE
--- NOTE | 2017-04-24 12:29 | DIAGNOSTIC IMAGING REPORT ---
(BARIUM SWALLOW) ESOPHAGUS CLINICAL HISTORY: 31 years-old Female with DYSPHAGIA. Difficulty swallowing with vomiting TECHNIQUE: Barium contrast and effervescent crystals were administered to the patient under fluoroscopic examination. Multiple images were obtained and submitted for review. FLUOROSCOPY TIME: 1.2 minutes COMPARISON: CTA of the chest 01/10/2017. FINDINGS: During deglutition, contrast material flowed freely through the cervical esophagus. No filling defect or mucosal abnormality is identified. No abnormal stricturing or mass effect is seen. The mid to distal esophagus is well coated and distended. No abnormal stricturing or mucosal abnormality is identified. Mild to moderate gastroesophageal reflux extends to the level of the mid thoracic esophagus. The GE junction is normal in appearance. IMPRESSION: Mild to moderate gastroesophageal reflux with otherwise unremarkable esophagram. The above report was generated using voice recognition software. It may contain grammatical, syntax or spelling errors. Electronically signed by: Lopez Segovia M.D. 04/24/2017 11:06 AM Dictated Date/Time: 04/24/2017 11:04 AM
== END | disposition home or self-care (01) ==
LOC: C.RAD 09:50
PROVIDERS: ATTEND Internal Medicine
DX: R13.10 Dysphagia, unspecified (principal)

== ENCOUNTER → 2017-07-06 | Outpatient (CLI) | payer OTHER | END | disposition home or self-care (01) | LOC: C.LAB1850 10:01 | PROVIDERS: ATTEND Internal Medicine Endocrinology, Diabetes & Metabolism | DX: Z01.419 Encounter for gynecological examination (general) (routine) without abnormal findings (principal); L74.510 Primary focal hyperhidrosis, axilla; L70.0 Acne vulgaris ==

== ENCOUNTER → 2017-07-06 | Outpatient (CLI) | payer OTHER | END | disposition home or self-care (01) | LOC: C.PAPS 11:05 | PROVIDERS: ATTEND Physician Assistant | DX: Z01.419 Encounter for gynecological examination (general) (routine) without abnormal findings (principal) ==

== ENCOUNTER → 2017-10-31 | Outpatient (CLI) | payer OTHER ==
--- NOTE | 2017-10-31 09:23 | DIAGNOSTIC IMAGING REPORT ---
R KNEE 1 OR 2 VIEWS ROUTINE CLINICAL HISTORY: M25.561 Knee pain, right pain COMPARISON: None. DISCUSSION: The bones and joint spaces appear intact. There is no evidence of fracture, dislocation or bony disease. There is no evidence for soft tissue swelling. IMPRESSION: Negative study. The above report was generated using voice recognition software. It may contain grammatical, syntax or spelling errors. Electronically signed by: Robert Arthur M.D. 10/31/2017 9:22 AM Dictated Date/Time: 10/31/2017 9:21 AM
[2017-11-04 02:25] LABS: ANA SCREEN TC 249X POSITIVE (NEGATIVE); ANTI-SS-A <1.0 NEG AI (<1.0 NEG); ANTI-SS-B <1.0 NEG AI (<1.0 NEG); ANTICARDIOLIPID AB IGA <11 APL (< = 11); COMPLEMENT C4** TC 44982E 16 MG/DL (15-57); MICROSOMAL AB <1 IU/ML (<9)
== END | disposition home or self-care (01) ==
LOC: C.RAD1850 08:47
PROVIDERS: ATTEND Internal Medicine Rheumatology
DX: M25.561 Pain in right knee (principal); L65.8 Other specified nonscarring hair loss; R76.8 Other specified abnormal immunological findings in serum; M35.7 Hypermobility syndrome

== ENCOUNTER 2020-10-12 15:18 | Inpatient (IN) ==
[2020-10-12] MEDS ORDERED: MoRPHine SULFATE 4 MG/ML 1 ML CARP\\VIAL IV STA ×2 (15:37→17:43)
[2020-10-12] MEDS ORDERED: SODIUM CHLORIDE 0.9% 1000ML 2,000 ML IV ONE (15:37)
[2020-10-12] MEDS ORDERED: ONDANSETRON INJ 2 MG/ML 2 ML VIAL IV STA (15:37)
--- NOTE | 2020-10-12 15:42 | Emergency Department Note ---
Impression & Plan Abdominal pain, Dehydration, Vomiting ED Provider Note NAME: RIKKI KRAFT AGE: 35 SEX: F : 1985 ARRIVES VIA: Ambulance INFORMANT: Patient ED PROVIDER(S): Ramses Mays DO CHIEF COMPLAINT: Abdominal pain HPI: Patient is a 35-year-old female who presents to the ER for abdominal pain. This started a week ago and has been present off and on. Today's it has been present since this morning. Associated with nausea and vomiting. Denies any headache or change in vision. No chest pain or shortness of breath. No other exacerbating or remitting factors. Pain is an 8 out of 10 and diffuse throughout the belly and describes as a canopy pain. She never had this before. No previous abdominal surgeries. Currently has her menstrual cycle. This just started 2 days ago. Appropriate timing. She does admit to persistent vomiting cannot keep anything down. She does not eat or drink anything out of the ordinary. ROS: See above HPI for pertinent positives & negatives. A total of 10 systems reviewed and were otherwise negative. PAST MEDICAL HISTORY:See Below PAST SURGICAL HISTORY:See Below FAMILY HISTORY:See Below SOCIAL HISTORY:See Below HOME MEDICATIONS:See Below ALLERGIES:See Below VITALS:See Below PHYSICAL EXAMINATION: GENERAL: Sitting up in bed, alert, holding a vomit bag, disheveled, mild distress EYE EXAM: normal conjunctiva. PERRL and EOM's grossly intact. OROPHARYNX: no exudate, no erythema, lips, buccal mucosa, and tongue normal and mucous membranes are dry NECK: supple, no nuchal rigidity, no adenopathy, non-tender LUNGS: Clear to auscultation. Normal chest wall mechanics HEART: no murmurs, S1 normal and S2 normal ABDOMEN: abdomen soft, non-tender, normo-active bowel sounds, no masses, no rebound or guarding. UPPER EXTREMITIES: upper extremities are grossly normal. LOWER EXTREMITIES: No pitting edema. NEURO EXAM: Normal sensorium, cranial nerves II-XII grossly intact, normal speech, no gross weakness of arms, no gross weakness of legs. MEDICAL DECISION MAKING: Patient is a 35-year-old female who presents the ER for abdominal pain. IV was established blood work obtained. Labs show leukocytosis of 11,000. No significant anemia. BMP with slightly elevated chloride. Bilirubin slightly elevated 2.1. Lactate was normal. Lipase was unremarkable. Covid was negative CT abdomen pelvis question an internal hernia. Discussed with Dr. Matthew Winkler who evaluated the patient at bedside. He does not think this is the case. He recommended discussion with the hospitalist and they admitted for further work-up. Patient was given IV narcotics fluids and Toradol. Triage Nursing notes reviewed. Limited review of prior medical records performed Vital Signs: reviewed and remarkable for no significant abnormalities Differential diagnosis: Differential diagnoses includes but is not limited to gastritis, peptic ulcer disease, GERD, gallbladder disease, pancreatitis, small bowel obstruction, acute coronary syndrome, pericarditis, ischemic bowel, irritable bowel disease, irritable bowel syndrome, appendicitis, diverticulitis, malignancy, hernia, urinary tract infection, torsion, /ectopic (if female), perforation, trauma, infectious. ER treatment provided: See below Diagnostics interpreted by me: ECG: none Cardiac Monitoring: An order was placed for continuous cardiac monitoring. The monitor shows a rate of 70 with sinus rhythm. Laboratory studies: As stated above and show below. Imaging studies: CT abdomen pelvis as discussed above Consultation(s): Discussed with Matthew Mckeon as discussed above Discussed with the hospitalist for further evaluation Procedures: none Critical Care: None Past Med/Surg History Surgical History (Updated 12/18/18 @ 10:58 by Stephanie Burkett) H/O oral surgery Family History (Updated 12/18/18 @ 10:57 by Stephanie Burkett) Father Hypertension Sickle cell trait Other Diabetes Social History (Updated 12/18/18 @ 10:56 by Stephanie Burkett) Smoking Status: Current every day smoker Tobacco Type: Cigarettes Hx Alcohol Use: No Hx Substance Use: No marital status: Single Feels Safe at Home: Yes Childhood Exposure to Second-Hand Smoke: No Physical Activity Frequency: 3-4 Times per Week Allergies Allergies Allergy/AdvReac Type Severity Reaction Status Date / Time CEFALEXIN Allergy Intermediate skin Uncoded 10/12/20 16:48 itching clindamycin Allergy Unknown Uncoded 10/12/20 16:48 Home Meds Home Medications Medication Instructions Recorded Confirmed albuterol sulfate 2 puff INHALATION Q6H PRN 10/12/20 10/12/20 Results & Data (ED) Vital Signs Vital Signs - 24 hr 10/12/20 15:30 10/12/20 15:31 10/12/20 15:36 Temperature 36.7 C Temperature Source Oral Pulse Rate 87 79 Respiratory Rate 18 14 Respiratory Effort / Characteristics Non-Labored Respiratory Depth Normal Respiratory Pattern Regular Blood Pressure 135/85 124/79 Blood Pressure Mean 101 94 Blood Pressure Position Lying Pulse Oximetry 99 99 Oxygen Delivery Method Room Air Room Air Sepsis New/Unexplained Change in Mental Status No Sepsis Action Taken by Nursing No Action Required 10/12/20 16:00 10/12/20 16:30 10/12/20 17:00 Temperature Temperature Source Pulse Rate 88 73 77 Respiratory Rate 20 16 19 Respiratory Effort / Characteristics Respiratory Depth Respiratory Pattern Blood Pressure 126/82 127/87 140/85 Blood Pressure Mean 96 100 103 Blood Pressure Position Pulse Oximetry 99 99 99 Oxygen Delivery Method Sepsis New/Unexplained Change in Mental Status Sepsis Action Taken by Nursing 10/12/20 17:30 10/12/20 18:00 10/12/20 18:30 Temperature Temperature Source Pulse Rate 82 75 75 Respiratory Rate 18 16 16 Respiratory Effort / Characteristics Respiratory Depth Respiratory Pattern Blood Pressure 122/78 122/83 126/76 Blood Pressure Mean 92 96 92 Blood Pressure Position Pulse Oximetry 99 Oxygen Delivery Method Sepsis New/Unexplained Change in Mental Status Sepsis Action Taken by Nursing 10/12/20 19:00 10/12/20 19:30 10/12/20 20:00 Temperature Temperature Source Pulse Rate 75 68 66 Respiratory Rate 13 18 17 Respiratory Effort / Characteristics Respiratory Depth Respiratory Pattern Blood Pressure 113/72 126/74 105/58 L Blood Pressure Mean 85 91 73 Blood Pressure Position Pulse Oximetry Oxygen Delivery Method Sepsis New/Unexplained Change in Mental Status Sepsis Action Taken by Nursing 10/12/20 20:30 10/12/20 21:00 10/12/20 21:31 Temperature Temperature Source Pulse Rate 73 71 66 Respiratory Rate 19 14 15 Respiratory Effort / Characteristics Respiratory Depth Respiratory Pattern Blood Pressure 117/67 113/64 113/47 L Blood Pressure Mean 83 80 69 Blood Pressure Position Pulse Oximetry Oxygen Delivery Method Sepsis New/Unexplained Change in Mental Status Sepsis Action Taken by Nursing Laboratory Data Result diagrams: 10/12/20 16:36 10/12/20 16:36 Lab Results 10/12/20 10/12/20 10/12/20 Range/Units 16:36 16:36 16:36 WBC 11.32 H (4.8-10.8) K/uL RBC 4.04 L (4.2-5.4) M/uL Hgb 12.7 (12.0-16.0) g/dL Hct 37.3 (37-47) % MCV 92.3 (80-100) fL MCH 31.4 (25-34) pg MCHC 34.0 (32-36) g/dL RDW Std Deviation 41.1 (36.4-46.3) fL RDW Coeff of Rika 12.1 (11.5-14.5) % Plt Count 241 (130-400) K/uL MPV 10.4 (7.4-10.4) fL Immature Gran % (Auto) 0.2 % Neut % (Auto) 84.8 % Lymph % (Auto) 10.3 % [place] % (Auto) 3.4 % Eos % (Auto) 1.1 % Baso % (Auto) 0.2 % Neut # (Auto) 9.60 H (1.4-6.5) K/uL Lymph # (Auto) 1.17 L (1.2-3.4) K/uL [place] # (Auto) 0.38 (0.11-0.59) K/uL Eos # (Auto) 0.13 (0-0.5) K/uL Baso # (Auto) 0.02 (0-0.2) K/uL Immature Gran # (Auto) 0.02 (0.00-0.02) K/uL Sodium 142 (136-145) mmol/L Potassium 3.8 (3.5-5.1) mmol/L Chloride 114 H (98-107) mmol/L Carbon Dioxide 27 (21-32) mmol/L Anion Gap 1.0 L (3-11) BUN 10 (7-18) mg/dl Creatinine 0.81 (0.6-1.2) mg/dl Est Cr Clr Drug Dosing 88.9 ml/min Est GFR ( Amer) 110.6 ml/min Est GFR (Non-Af Amer) 95.4 ml/min BUN/Creatinine Ratio 12.0 (10-20) Glucose 129 H (70-99) mg/dl Lactate (0.4-2.0) mmol/L Calcium 8.3 L (8.5-10.1) mg/dl Total Bilirubin 2.1 H (0.2-1) mg/dl AST 12 L (15-37) U/L ALT 16 (12-78) U/L Alkaline Phosphatase 39 L (45-117) U/L Total Protein 7.0 (6.4-8.2) gm/dl Albumin 3.6 (3.4-5.0) gm/dl Globulin 3.4 (2.5-4.0) gm/dl Albumin/Globulin Ratio 1.1 (0.9-2) Lipase 79 (73-393) U/L HCG, Qual Negative (Negative) COVID-19 Eval Order SARS-CoV-2 (PCR) (Negative) 10/12/20 10/12/20 10/12/20 Range/Units 17:51 17:51 17:59 WBC (4.8-10.8) K/uL RBC (4.2-5.4) M/uL Hgb (12.0-16.0) g/dL Hct (37-47) % MCV (80-100) fL MCH (25-34) pg MCHC (32-36) g/dL RDW Std Deviation (36.4-46.3) fL RDW Coeff of Rika (11.5-14.5) % Plt Count (130-400) K/uL MPV (7.4-10.4) fL Immature Gran % (Auto) % Neut % (Auto) % Lymph % (Auto) % [place] % (Auto) % Eos % (Auto) % Baso % (Auto) % Neut # (Auto) (1.4-6.5) K/uL Lymph # (Auto) (1.2-3.4) K/uL [place] # (Auto) (0.11-0.59) K/uL Eos # (Auto) (0-0.5) K/uL Baso # (Auto) (0-0.2) K/uL Immature Gran # (Auto) (0.00-0.02) K/uL Sodium (136-145) mmol/L Potassium (3.5-5.1) mmol/L Chloride (98-107) mmol/L Carbon Dioxide (21-32) mmol/L Anion Gap (3-11) BUN (7-18) mg/dl Creatinine (0.6-1.2) mg/dl Est Cr Clr Drug Dosing ml/min Est GFR ( Amer) ml/min Est GFR (Non-Af Amer) ml/min BUN/Creatinine Ratio (10-20) Glucose (70-99) mg/dl Lactate 1.3 (0.4-2.0) mmol/L Calcium (8.5-10.1) mg/dl Total Bilirubin (0.2-1) mg/dl AST (15-37) U/L ALT (12-78) U/L Alkaline Phosphatase (45-117) U/L Total Protein (6.4-8.2) gm/dl Albumin (3.4-5.0) gm/dl Globulin (2.5-4.0) gm/dl Albumin/Globulin Ratio (0.9-2) Lipase (73-393) U/L HCG, Qual (Negative) COVID-19 Eval Order Covid19 at [facility] SARS-CoV-2 (PCR) NEGATIVE (Negative) 10/12/20 Range/Units 18:05 WBC (4.8-10.8) K/uL RBC (4.2-5.4) M/uL Hgb (12.0-16.0) g/dL Hct (37-47) % MCV (80-100) fL MCH (25-34) pg MCHC (32-36) g/dL RDW Std Deviation (36.4-46.3) fL RDW Coeff of Rika (11.5-14.5) % Plt Count (130-400) K/uL MPV (7.4-10.4) fL Immature Gran % (Auto) % Neut % (Auto) % Lymph % (Auto) % [place] % (Auto) % Eos % (Auto) % Baso % (Auto) % Neut # (Auto) (1.4-6.5) K/uL Lymph # (Auto) (1.2-3.4) K/uL [place] # (Auto) (0.11-0.59) K/uL Eos # (Auto) (0-0.5) K/uL Baso # (Auto) (0-0.2) K/uL Immature Gran # (Auto) (0.00-0.02) K/uL Sodium (136-145) mmol/L Potassium (3.5-5.1) mmol/L Chloride (98-107) mmol/L Carbon Dioxide (21-32) mmol/L Anion Gap (3-11) BUN (7-18) mg/dl Creatinine (0.6-1.2) mg/dl Est Cr Clr Drug Dosing ml/min Est GFR ( Amer) ml/min Est GFR (Non-Af Amer) ml/min BUN/Creatinine Ratio (10-20) Glucose (70-99) mg/dl Lactate (0.4-2.0) mmol/L Calcium (8.5-10.1) mg/dl Total Bilirubin (0.2-1) mg/dl AST (15-37) U/L ALT (12-78) U/L Alkaline Phosphatase (45-117) U/L Total Protein (6.4-8.2) gm/dl Albumin (3.4-5.0) gm/dl Globulin (2.5-4.0) gm/dl Albumin/Globulin Ratio (0.9-2) Lipase (73-393) U/L HCG, Qual (Negative) COVID-19 Eval Order Cancelled SARS-CoV-2 (PCR) (Negative) Administered Medications Discontinued Medications Al Hydrox/Mg Hydrox/Simethicone (Gi Cocktail Ed Use) 1 dose PO ONE ONE Stop: 10/12/20 16:10 Last Admin: 10/12/20 16:25 Dose: 1 dose Documented by: [id number] Sodium Chloride (Nss 1000ml) 2,000 mls @ 999 mls/hr IV .Q2H1M ONE Stop: 10/12/20 17:37 Last Infusion: 10/12/20 17:48 Dose: 0 mls/hr Documented by: [id number] Admin: 10/12/20 15:48 Dose: 999 mls/hr Documented by: [id number] Ioversol (Optiray 320 100ml) 89 ml IV ONCE ONE Stop: 10/12/20 17:22 Last Admin: 10/12/20 17:22 Dose: 89 ml Documented by: [id number] Ketorolac Tromethamine (Ketorolac Tromethamine 15 Mg/Ml Vial) 15 mg IV NOW ONE Stop: 10/12/20 16:10 Last Admin: 10/12/20 16:24 Dose: 15 mg Documented by: [id number] Morphine Sulfate (Morphine Sulfate 4 Mg/Ml 1 Ml Carp\Vial) 4 mg IV NOW STA Stop: 10/12/20 15:38 Last Admin: 10/12/20 15:47 Dose: 4 mg Documented by: [id number] Morphine Sulfate (Morphine Sulfate 4 Mg/Ml 1 Ml Carp\Vial) 4 mg IV NOW STA Stop: 10/12/20 17:44 Last Admin: 10/12/20 17:59 Dose: 4 mg Documented by: [id number] Ondansetron HCl (Ondansetron Inj 2 Mg/Ml 2 Ml Vial) 4 mg IV NOW STA Stop: 10/12/20 15:38 Last Admin: 10/12/20 15:47 Dose: 4 mg Documented by: [id number] Imaging Data Radiologist's Impression: Abdomen/Pelvis CT 10/12/20 15:37 CT abd pelvis IV con only CLINICAL HISTORY: abd pain w/ vomiting COMPARISON STUDY: None. TECHNIQUE: Patient was scanned in a dynamic helical fashion during intravenous administration of 89 cc of Optiray 320 A dose lowering technique was utilized adhering to the principles of ALARA. CT DOSE: 237.19 mGy.cm FINDINGS: Lower chest: The heart is normal in size and configuration, without pericardial effusion. The lung bases and pleural spaces are clear. Liver: The contrast-enhanced liver is normal in size, contour, and attenuation. There is no intrahepatic biliary ductal dilatation. The hepatic veins and portal veins are patent. Gallbladder: Unremarkable. Spleen: Normal in size and attenuation. Pancreas: Unremarkable. Adrenal glands: Unremarkable. Kidneys: There is symmetric renal cortical enhancement. The kidneys are normal in size without hydronephrosis. Bowel: Bowel evaluation is limited given the paucity of intra-abdominal fat and the lack of orally administered contrast. There are several mildly dilated fluid-filled small bowel loops. There is an unusual encapsulated cluster of small bowel loops within the central abdomen, suspicious for an internal hernia. Surgical consultation recommended. There is no evidence of acute diverticulitis. There are no findings viewed as suspicious for acute appendicitis. Peritoneum: There is mild mesenteric edema. There is trace free fluid. There is no free air. Vasculature: The abdominal aorta is normal in course and caliber. Adenopathy: None. Pelvic viscera: The bladder, and pelvic viscera are unremarkable. Skeletal structures: No destructive osseous lesions are seen. IMPRESSION: 1. Difficult study to interpret due to the paucity of intra-abdominal fat and the lack of orally administered contrast 2. Abnormal appearance of the bowel with mildly dilated fluid-filled small bowel loops, mesenteric edema, and findings suspicious for an internal hernia. Surgical consultation recommended. 3. Mild free fluid. No evidence of free air. No portal venous gas identified. ACT 112: Negative or not required by law. Electronically signed by: Indra Cottrell M.D. 10/12/2020 5:36 PM Discharge Plan Visit Data Chief Complaint: Abdominal Pain ED Provider: Ramses Mays Discharge Problem: Abdominal pain, Dehydration, Vomiting Patient Disposition: Admitted As Inpatient Discharge Instructions Interventions: ED Discharge Assessment Last Done: 10/12/20 21:34 Forms Stand Alone Forms: [employer] Prescriptions Prescriptions: No Action albuterol sulfate 90 mcg/actuation Hfa Aerosol Inhaler 2 puff INHALATION Q6H PRN (Reason: Sinus Symptoms) RF: 0 Referrals Referrals: PCP,NO [Primary Care Provider] - Discharge Problem: Abdominal pain Qualifiers: Abdominal location: unspecified location Qualified Code(s): R10.9 - Unspecified abdominal pain Vomiting Qualifiers: Vomiting type: unspecified Vomiting Intractability: unspecified Nausea presence: unspecified Qualified Code(s): R11.10 - Vomiting, unspecified
[2020-10-12] MEDS ORDERED: GI COCKTAIL ED USE PO ONE (16:09)
[2020-10-12] MEDS ORDERED: KETOROLAC TROMETHAMINE 15 MG/ML VIAL IV ONE (16:09)
[2020-10-12 16:45] LABS: Basophils # (auto) 0.02 K/uL (0-0.2); Basophils % (auto) 0.2 %; Eosinophils # (auto) 0.13 K/uL (0-0.5); Eosinophils % (auto) 1.1 %; Hematocrit (blood only) 37.3 % (37-47); Hemoglobin 12.7 g/dL (12.0-16.0); Immature Granulocytes # (auto) 0.02 K/uL (0.00-0.02); Immature Granulocytes % (auto) 0.2 %; Lymphocytes # (auto) 1.17 K/uL (1.2-3.4); Lymphocytes % (auto) 10.3 %; Mean Corpuscular Hemoglobin 31.4 pg (25-34); Mean Corpuscular Volume 92.3 fL (80-100); Mean Platelet Volume 10.4 fL (7.4-10.4); Monocytes # (auto) 0.38 K/uL (0.11-0.59); Monocytes % (auto) 3.4 %; Neutrophils % (auto) 84.8 %; Platelet Count 241 K/uL (130-400); RDW Coefficient of Variation 12.1 % (11.5-14.5); RDW Standard Deviation 41.1 fL (36.4-46.3); Red Blood Count 4.04 M/uL (4.2-5.4); White Blood Count 11.32 K/uL (4.8-10.8)
[2020-10-12 17:03] LABS: Albumin Level 3.6 gm/dl (3.4-5.0); Calcium 8.3 mg/dl (8.5-10.1); Creatinine Clr Calc Pharmacy 88.9 ml/min; Est GFR (African American) 110.6 ml/min; Est GFR (Non-African American) 95.4 ml/min; Potassium 3.8 mmol/L (3.5-5.1)
[2020-10-12 17:05] LABS: Albumin Globulin Ratio 1.1 (0.9-2); Bilirubin,Total 2.1 mg/dl (0.2-1); Globulin 3.4 gm/dl (2.5-4.0)
[2020-10-12 17:12] LABS: Pregnancy Test, Serum Negative (Negative)
[2020-10-12] MEDS ORDERED: OPTIRAY 320 100ml IV ONE (17:21)
--- NOTE | 2020-10-12 17:38 | CT Scan Report ---
CT abd pelvis IV con only CLINICAL HISTORY: abd pain w/ vomiting COMPARISON STUDY: None. TECHNIQUE: Patient was scanned in a dynamic helical fashion during intravenous administration of 89 c c of Optiray 320 A dose lowering technique was utilized adhering to the principles of ALARA. CT DOSE: 237.19 mGy.cm FINDINGS: Lower chest: The heart is normal in size and configuration, without pericardial effusion. The lung ba ses and pleural spaces are clear. Liver: The contrast-enhanced liver is normal in size, contour, and attenuation. There is no intrahepa tic biliary ductal dilatation. The hepatic veins and portal veins are patent. Gallbladder: Unremarkable. Spleen: Normal in size and attenuation. Pancreas: Unremarkable. Adrenal glands: Unremarkable. Kidneys: There is symmetric renal cortical enhancement. The kidneys are normal in size without hydron ephrosis. Bowel: Bowel evaluation is limited given the paucity of intra-abdominal fat and the lack of orally ad ministered contrast. There are several mildly dilated fluid-filled small bowel loops. There is an unu sual encapsulated cluster of small bowel loops within the central abdomen, suspicious for an internal hernia. Surgical consultation recommended. There is no evidence of acute diverticulitis. There are n o findings viewed as suspicious for acute appendicitis. Peritoneum: There is mild mesenteric edema. There is trace free fluid. There is no free air. Vasculature: The abdominal aorta is normal in course and caliber. Adenopathy: None. Pelvic viscera: The bladder, and pelvic viscera are unremarkable. Skeletal structures: No destructive osseous lesions are seen. IMPRESSION: 1. Difficult study to interpret due to the paucity of intra-abdominal fat and the lack of orally admi nistered contrast 2. Abnormal appearance of the bowel with mildly dilated fluid-filled small bowel loops, mesenteric ed chayo, and findings suspicious for an internal hernia. Surgical consultation recommended. 3. Mild free fluid. No evidence of free air. No portal venous gas identified. ACT 112: Negative or not required by law. Electronically signed by: Indra Cottrell M.D. 10/12/2020 5:36 PM
--- NOTE | 2020-10-12 18:35 | Electrocardiogram Report ---
Test Reason : Blood Pressure : / mmHG Vent. Rate : 071 BPM Atrial Rate : 071 BPM P-R Int : 148 ms QRS Dur : 076 ms QT Int : 420 ms P-R-T Axes : 067 080 065 degrees QTc Int : 456 ms Poor data quality, interpretation may be adversely affected Normal sinus rhythm Normal ECG When compared with ECG of 10-JAN-2017 09:25, QT has lengthened Confirmed by Luis Lao ([id number]) on 10/12/2020 6:34:57 PM Referred By: Confirmed By:Wesley Lao
--- NOTE | 2020-10-12 19:19 | Surgery Consultation ---
Date of Consultation october 12, 2020 I was called to see the patient by the ER physician approximately 5:45 this evening. Was quite concerned that the patient may have had an acute abdomen and could not keep the patient comfortable for excruciating abdominal pain that she was having Apparently CAT scan it showed possibility of an internal hernia Assessment & Plan (1) Abdominal pain: At this point the patient is abdominal exam is completely benign there is no evidence of any intra-abdominal process at this time I am not sure if all the pain that she had initially may have been related to her daily use of marijuana and now the pain is subsided with the use of morphine that she had Having said this I discussed the situation with the ER physician and from my point of view there is no surgical abdomen whether or not he would like to have the medical service to see the patient and maybe address other issues I will leave it up to his discretion History of Present Illness Reason for Consultation: Abdominal pain History of Present Illness When I saw the patient approximately 6:00 pm she was resting comfortably had a visitor in a young child in the room She states that the pain is pretty much subsided at this time States that she had the pain 3 to 4 days before but it subsided but today was quite significant that she had bouts of vomiting 3-4 times and the pain was on the left side of her belly she stated that she moves her bowels regularly She denies any chills or fever she felt that some of the discomfort that she has been her abdomen off-and-on may be triggered by fibers foods Patient's past medical history is positive for using medical marijuana never had any previous abdominal surgery Allergies Allergy/AdvReac Type Severity Reaction Status Date / Time CEFALEXIN Allergy Intermediate skin Uncoded 10/12/20 16:48 itching clindamycin Allergy Unknown Uncoded 10/12/20 16:48 Home Medications Medication Instructions Recorded Confirmed Type albuterol sulfate 2 puff INHALATION Q6H PRN 10/12/20 10/12/20 History Patient History Surgical History (Updated 12/18/18 @ 10:58 by Stephanie Burkett) H/O oral surgery Family History (Updated 12/18/18 @ 10:57 by Stephanie Burkett) Father Hypertension Sickle cell trait Other Diabetes Social History (Updated 12/18/18 @ 10:56 by Stephanie Burkett) Smoking Status: Current every day smoker Tobacco Type: Cigarettes Hx Alcohol Use: No Hx Substance Use: No marital status: Single Feels Safe at Home: Yes Childhood Exposure to Second-Hand Smoke: No Physical Activity Frequency: 3-4 Times per Week Physical Exam Physical Exam: On examining at that time she was alert coherent resting comfortable no distress The vitals were noted not tachycardic Oropharyngeal area moist The sclera nonicteric Multiple tattoos in the upper extremities and chest noted The abdomen is soft completely benign there is no tenderness at this time Laboratories noted Results & Data ([facility]) Vital Signs (Past 12 Hours) Vital Signs Temp Pulse Resp BP Pulse Ox 10/12/20 19:00 75 13 113/72 10/12/20 18:30 75 16 126/76 10/12/20 18:00 75 16 122/83 10/12/20 17:30 82 18 122/78 99 10/12/20 17:00 77 19 140/85 99 10/12/20 16:30 73 16 127/87 99 10/12/20 16:00 88 20 126/82 99 10/12/20 15:36 36.7 C 79 14 124/79 99 10/12/20 15:31 99 10/12/20 15:30 87 18 135/85 Lab noted CAT scan was reviewed PG Care Time/CCT Total # of Minutes Spent Total Time Spent with Patient: Total time spent is greater than 50% in coordination of care (as documented) at patient's floor/unit and/or counseling patient: Coding Level of Care Code 22929 Inpt Consult Level 2 Diagnoses Abdominal pain R10.9
--- NOTE | 2020-10-12 20:39 | History & Physical Report ---
Date of Service October 12, 2020 Assessment & Plan (1) Abdominal pain: Patient having generalized abdominal pain. Surgery saw patient and reported that it is not a surgical abdomen. Will monitor overnight and place on clear liquid. Patient reported that morphine did not help and actually made pain worse. Do no feel that narcotics are the answer for her abdominal pain. will try to limit opiates, and may try tylenol for now. will check CMP in AM and inflammatory markers. May consider consult with GI in AM. History of Present Illness Chief Complaint: ABDOMINAL PAIN Primary Care Provider: NO PCP Patient reports having generalized abdominal pain. Patient is a 35 yo female who presents to the ER for generalized abdominal pain which began about 1 week ago. It is intermitent, however, today, it has been constant. This was severe with an intensity of about 8/10. Patient reports she never had pain quite like this in the past. She reports she has been nauseous, and has not been able to eat. Currently has her menstrual cycle. This just started 2 days ago. She reports she was given morhpine in the er BUT THIS MADE THE PAIN WORSE. by time, she was seen by me, her pain had resolved. Allergies Allergy/AdvReac Type Severity Reaction Status Date / Time cephalexin Allergy Intermediate Unknown Verified 10/12/20 23:04 clindamycin Allergy Unknown Unknown Verified 10/12/20 23:04 Home Medications Medication Instructions Recorded Confirmed Type albuterol sulfate 2 puff INHALATION Q6H PRN 10/12/20 10/12/20 History Past Med/Surg History Surgical History H/O oral surgery Family History Father Hypertension Sickle cell trait Other Diabetes Social History Smoking Status: Never smoker Tobacco Type: Cigarettes Hx Alcohol Use: No Hx Substance Use: Yes Last Used Substance: Hours (ago) Last Used Substance Other:: 10/12/20, 999 Substance Use Type Other:: medical marijuana Preferred Language: Latvian Communication Ability: Effective Polisher Dial Required: No Beliefs That Will Affect Care: None marital status: Single Current Living Situation: Family Other Information That Helps Us Care for You: No Feels Safe at Home: Yes Safety Concerns: Feels Safe At This Time Childhood Exposure to Second-Hand Smoke: No Physical Activity Frequency: 3-4 Times per Week Assistive Devices: None Review of Systems Review of Systems: All systems reviewed & are unremarkable except as noted in HPI & below Physical Exam Physical Exam: GENERAL: Sitting up in bed, alert, in no distress EYE EXAM: normal conjunctiva. PERRL and EOM's grossly intact. OROPHARYNX: no exudate, no erythema, lips, buccal mucosa, and tongue normal and mucous membranes are dry NECK: supple, no nuchal rigidity, no adenopathy, non-tender LUNGS: Clear to auscultation. HEART: no murmurs, S1 normal and S2 normal ABDOMEN: abdomen soft, non-tender, normo-active bowel sounds, no masses, no rebound or guarding. UPPER EXTREMITIES: upper extremities are grossly normal. LOWER EXTREMITIES: No pitting edema. NEURO EXAM: Normal sensorium, cranial nerves II-XII grossly intact, no foca weakness Results & Data Results & Data ([facility]) Vital Signs (Past 12 Hours) Vital Signs Temp Pulse Resp BP Pulse Ox 10/12/20 20:00 66 17 105/58 L 10/12/20 19:30 68 18 126/74 10/12/20 19:00 75 13 113/72 10/12/20 18:30 75 16 126/76 10/12/20 18:00 75 16 122/83 10/12/20 17:30 82 18 122/78 99 10/12/20 17:00 77 19 140/85 99 10/12/20 16:30 73 16 127/87 99 10/12/20 16:00 88 20 126/82 99 10/12/20 15:36 36.7 C 79 14 124/79 99 10/12/20 15:31 99 10/12/20 15:30 87 18 135/85 PG Care Time/CCT Total # of Minutes Spent Total Time Spent with Patient: Total time spent is greater than 50% in coordination of care (as documented) at patient's floor/unit and/or counseling patient: Coding Level of Care Code 01822 Initial Inpt Care Lvl 2 Diagnoses Abdominal pain R10.9
[2020-10-12] MEDS ORDERED: ALBUTEROL HFA 8 GM INHALER INH PRN (22:35)
[2020-10-13 06:38] LABS: Basophils # (auto) 0.02 K/uL (0-0.2); Basophils % (auto) 0.2 %; Eosinophils # (auto) 0.14 K/uL (0-0.5); Eosinophils % (auto) 1.4 %; Hematocrit (blood only) 37.9 % (37-47); Hemoglobin 12.5 g/dL (12.0-16.0); Immature Granulocytes # (auto) 0.02 K/uL (0.00-0.02); Immature Granulocytes % (auto) 0.2 %; Lymphocytes # (auto) 2.02 K/uL (1.2-3.4); Lymphocytes % (auto) 19.6 %; Mean Corpuscular Hemoglobin 31.4 pg (25-34); Mean Corpuscular Volume 95.2 fL (80-100); Mean Platelet Volume 10.8 fL (7.4-10.4); Monocytes # (auto) 0.58 K/uL (0.11-0.59); Monocytes % (auto) 5.6 %; Neutrophils # (auto) 7.51 K/uL (1.4-6.5); Platelet Count 260 K/uL (130-400); RDW Coefficient of Variation 12.1 % (11.5-14.5); RDW Standard Deviation 42.3 fL (36.4-46.3); Red Blood Count 3.98 M/uL (4.2-5.4); White Blood Count 10.29 K/uL (4.8-10.8)
[2020-10-13 06:47] LABS: INR 1.1 (0.9-1.1); Prothrombin Time 10.9 Seconds (9.0-12.0)
[2020-10-13 07:13] LABS: Alanine Aminotransferase 15 U/L (12-78); Albumin Level 3.3 gm/dl (3.4-5.0); Anion Gap 0 (3-11); Aspartate Aminotransferase 9 U/L (15-37); BUN Creatinine Ratio 8.4 (10-20); Blood Urea Nitrogen 6 mg/dl (7-18); Calcium 8.6 mg/dl (8.5-10.1); Carbon Dioxide 30 mmol/L (21-32); Chloride 110 mmol/L (98-107); Creatinine Clr Calc Pharmacy 94.7 ml/min; Est GFR (African American) 119.5 ml/min; Est GFR (Non-African American) 103.1 ml/min; Glucose 82 mg/dl (70-99); Potassium 3.7 mmol/L (3.5-5.1); Sodium 140 mmol/L (136-145)
[2020-10-13 07:16] LABS: Albumin Globulin Ratio 0.9 (0.9-2); Alkaline Phosphatase 38 U/L (45-117); Bilirubin,Total 2.4 mg/dl (0.2-1); C Reactive Protein < 0.29 mg/dl (0-0.29); Globulin 3.5 gm/dl (2.5-4.0); Total Protein 6.8 gm/dl (6.4-8.2)
[2020-10-13 07:33] LABS: Appearance Urine Clear (Clear); Bacteria Urine Automated Negative (Negative); Bilirubin Urine Negative (Negative); Blood Urine 3+ (Negative); Cast Urine Automated 0 /lpf (0-5); Color Urine Yellow; Glucose Urine UA Negative (Negative); Ketones Urine Trace (Negative); Leukocyte Esterase Urine Negative (Negative); Nitrite Urine Negative (Negative); Protein Urine Negative (Negative); RBC Urine Automated 0-4 /hpf (0-4); Specific Gravity Urine 1.026 (1.000-1.030); Urobilinogen Urine Negative (Negative); pH Urine 6.5 (4.5-7.5)
--- NOTE | 2020-10-13 08:13 | Surgery Progress Note ---
Date of Service October 13, 2020 Assessment & Plan (1) Abdominal pain: Patient feeling improvement in her presenting symptoms this AM WBC, afebrile, VSS. On exam abdomen is soft, non tender, non distended Tolerating clear liquids. Denies abdominal pain/n/v Okay to trial advancing to regular diet this AM. Patient says she has issues w/ certain foods such as high fiber, bread, etc..will try to avoid these No plans for surgical intervention. Patient may benefit from GI workup at some point... says she had an EGD in the past Admission and Anticipated Discharge Date Admission Date: October 12, 2020 Subjective Patient says she is feeling much better this AM. Denies abdominal pain, nausea/vomiting. Starting to feel like she may pass gas or have a BM. Patient says she has had episodes similar to this in the past after eating certain foods, but that this was the most severe episode. Physical Exam Physical Exam: awake/alert Gastrointestinal (Abdomen): soft, non tender, non distended Results & Data ([facility]) Vital Signs (Past 12 Hours) Vital Signs Temp Pulse Pulse Resp BP BP Pulse Ox 10/13/20 07:04 36.9 C 80 16 112/70 98 10/12/20 22:39 37.3 C 67 16 108/75 100 10/12/20 21:31 66 15 113/47 L 10/12/20 21:00 71 14 113/64 10/12/20 20:30 73 19 117/67 PG Care Time/CCT Total # of Minutes Spent Total Time Spent with Patient: Total time spent is greater than 50% in coordination of care (as documented) at patient's floor/unit and/or counseling patient: Coding Level of Care Code 68444 Subseq Hosp Care Lvl 1 Diagnoses Abdominal pain R10.9 Abdominal location: unspecified location (1) Abdominal pain Abdominal location: unspecified location Qualified Code(s): R10.9 - Unspecified abdominal pain
--- NOTE | 2020-10-13 11:57 | Gastrointestinal Consultation ---
Date of Consultation October 13, 2020 Assessment & Plan (1) Abdominal pain: Etiology unclear. EGD in 2018 was unremarkable. Patient reports lower abdominal pain during this episode. CT shows that there are several mildly dilated fluid-filled small bowel loops and an unusual encapsulated cluster of small bowel loops within the central abdomen, suspicious for an internal hernia. She is currently denying upper GI symptoms. -Recommendations regarding possible hernia on CT scan per general surgery -Can consider filling in GI work-up with colonoscopy and US gallbladder. If patient's symptoms remain improved as they are presently, these can be done as an outpatient. -Though her symptoms aren't entirely consistent with abdominal pain seen with marijuana use, could try topical Capsaicin applied to the periumbilical area q 6 hours to see if this offers a benefit. Supervising Physician Co-Signing Physician Notes Agree with HORTENCIA Merritt as above Patient was discharged prior to my evaluation. Patient was advised to followup for outpatient workup. History of Present Illness Reason for Consultation: Abdominal pain Attending Physician: Devin Gupta History of Present Illness Patient is a 35 yo female with history of DVT who presented to the ED for acute abdominal pain. The pain is reportedly generalized and began 1 week ago. She notes that the pain is worse because she is presently on her period. She notes that it started as intermittent lower abdominal and lower back pain, but yesterday it became constant and severe ranging from 8-10/10 on the pain scale. She reports nausea with the pain, but notes that other than yesterday's acute episode, she has been able to eat. Reportedly morphine worsened her pain. She had an EGD in 2018 for dysphagia that was entirely unremarkable. She denies heartburn, reflux, vomiting, or other upper GI symptoms at present. She denies a change in her bowel habits, but reports lower abdominal cramping and gas. A CT scan was technically difficult but raised the possibility of an internal hernia. Surgery has evaluated the patient and advised GI consult. She denies NSAID use. She denies fever, chills, sweats, or unintentional weight loss. Patient does use medical marijuana. She is a and is a single mother to a 9 year old son with ADHD and autism. She works 3 jobs and does not have a big support system locally. Allergies Allergy/AdvReac Type Severity Reaction Status Date / Time cephalexin Allergy Intermediate Unknown Verified 10/12/20 23:04 clindamycin Allergy Unknown Unknown Verified 10/12/20 23:04 Home Medications Medication Instructions Recorded Confirmed Type albuterol sulfate 90 mcg/actuation 2 puff INHALATION Q6H PRN 10/12/20 10/12/20 History aerosol inhaler capsaicin 0.033 % topical cream 1 applic EXT QID #1 g 10/13/20 Rx (Zostrix) pantoprazole 40 mg tablet,delayed 40 mg PO BID #60 tab 10/13/20 Rx release Patient History Surgical History H/O oral surgery Family History Father Hypertension Sickle cell trait Other Diabetes Social History Smoking Status: Never smoker Tobacco Type: Cigarettes Hx Alcohol Use: No Hx Substance Use: Yes Last Used Substance: Hours (ago) Last Used Substance Other:: 10/12/20, 999 Substance Use Type Other:: medical marijuana Preferred Language: Bulgarian Communication Ability: Effective 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 Beliefs That Will Affect Care: None marital status: Single Current Living Situation: Family Other Information That Helps Us Care for You: No Feels Safe at Home: Yes Safety Concerns: Feels Safe At This Time Childhood Exposure to Second-Hand Smoke: No Physical Activity Frequency: 3-4 Times per Week Assistive Devices: None Review of Systems Constitutional: no fever and no chills Respiratory: no cough and no dyspnea Cardiovascular: no chest pain Gastrointestinal: + abdominal pain, + bloating and + nausea; no heartburn, no vomiting, no coffee ground emesis, no change in bowel habits, no change in stools, no constipation, no diarrhea/loose stools and no blood in stools Physical Exam Constitutional: WD/WN, vitals as above Respiratory: normal respiratory effort, lungs clear to auscultation Gastrointestinal (Abdomen): Inspection/Auscultation: abdomen normal to inspection Percussion/Palpation: + abdomen tender and abdomen soft Musculoskeletal: Head/Neck/Chest: normocephalic Psychiatric: A+Ox3, euthymic affect Results & Data ([facility]) Vital Signs (Past 12 Hours) Vital Signs Temp Pulse Resp BP Pulse Ox 10/13/20 07:04 36.9 C 80 16 112/70 98 Results CBC w Diff: RBC 3.98 M/uL (4.2-5.4) L 10/13/20 WBC 10.29 K/uL (4.8-10.8) 10/13/20 Hgb 12.5 g/dL (12.0-16.0) 10/13/20 Hct 37.9 % (37-47) 10/13/20 MCV 95.2 fL (80-100) 10/13/20 MCH 31.4 pg (25-34) 10/13/20 MCHC 33.0 g/dL (32-36) 10/13/20 RDW Standard Deviation 42.3 fL (36.4-46.3) 10/13/20 RDW Coefficient of Variation 12.1 % (11.5-14.5) 10/13/20 Plt Count 260 K/uL (130-400) 10/13/20 MPV 10.8 fL (7.4-10.4) H 10/13/20 Neutrophils (%) (Auto) 73.0 % 10/13/20 Lymphocytes (%) (Auto) 19.6 % 10/13/20 Monocytes # (Auto) 0.58 K/uL (0.11-0.59) 10/13/20 Eosinophils # (Auto) 0.14 K/uL (0-0.5) 10/13/20 Immature Granulocyte % (Auto) 0.2 % 10/13/20 Neutrophils # (Auto) 7.51 K/uL (1.4-6.5) H 10/13/20 Lymphocytes # (Auto) 2.02 K/uL (1.2-3.4) 10/13/20 Monocytes # (Auto) 0.58 K/uL (0.11-0.59) 10/13/20 Eosinophils # (Auto) 0.14 K/uL (0-0.5) 10/13/20 Basophils # (Auto) 0.02 K/uL (0-0.2) 10/13/20 Immature Granulocyte # (Auto) 0.02 K/uL (0.00-0.02) 10/13/20 Results BMP Results: Sodium 140 mmol/L (136-145) 10/13/20 Potassium 3.7 mmol/L (3.5-5.1) 10/13/20 Chloride 110 mmol/L (98-107) H 10/13/20 BUN 6 mg/dl (7-18) L 10/13/20 Creatinine 0.76 mg/dl (0.6-1.2) 10/13/20 Glucose 82 mg/dl (70-99) 10/13/20 PG Care Time/CCT Total # of Minutes Spent Total Time Spent with Patient: Total time spent is greater than 50% in coordination of care (as documented) at patient's floor/unit and/or counseling patient: Coding Level of Care Code 98465 Inpt Consult Level 4 Diagnoses Abdominal pain R10.9 Abdominal location: unspecified location (1) Abdominal pain Abdominal location: unspecified location Qualified Code(s): R10.9 - Unspecified abdominal pain
[2020-10-13] MEDS ORDERED: CAPSAICIN CR 0.075% 60 GM TUBE EXT PRN (12:02)
[2020-10-13] MEDS ORDERED: PANTOprazole 40 MG TAB PO SCH (12:05)
[2020-10-13] MEDS ORDERED: CAPSAICIN CR 0.075% 60 GM TUBE EXT SCH (13:00)
--- NOTE | 2020-10-14 10:22 | Discharge Summary ---
Date of Service October 13, 2020 Admission HPI Per Admitting Provider Patient reports having generalized abdominal pain. Patient is a 35 yo female who presents to the ER for generalized abdominal pain which began about 1 week ago. It is intermiTtent, however, today, it has been constant. This was severe with an intensity of about 8/10. Patient reports she never had pain quite like this in the past. She reports she has been nauseous, and has not been able to eat. Currently has her menstrual cycle. This just started 2 days ago. She reports she was given morhpine in the er BUT THIS MADE THE PAIN WORSE. by time, she was seen by me, her pain had resolved. Principal Diagnosis abdominal pain Discharge Exam GENERAL: Sitting up in bed, alert, in no distress EYE EXAM: normal conjunctiva. PERRL and EOM's grossly intact. OROPHARYNX: no exudate, no erythema, lips, buccal mucosa, and tongue normal and mucous membranes are dry NECK: supple, no nuchal rigidity, no adenopathy, non-tender LUNGS: Clear to auscultation. HEART: no murmurs, S1 normal and S2 normal ABDOMEN: abdomen soft, non-tender, normo-active bowel sounds, no masses, no rebound or guarding. UPPER EXTREMITIES: upper extremities are grossly normal. LOWER EXTREMITIES: No pitting edema. NEURO EXAM: Normal sensorium, cranial nerves II-XII grossly intact, no foca weakness Discharge Data Allergies Allergy/AdvReac Type Severity Reaction Status Date / Time cephalexin Allergy Intermediate Unknown Verified 10/12/20 23:04 clindamycin Allergy Unknown Unknown Verified 10/12/20 23:04 Consultations 10/12/20 17:43 Consult General Surgery Stat 10/12/20 18:22 ED Decision to Admit Stat 10/13/20 09:12 Consult Gastroenterology Routine Ordered Studies 10/12/20 15:37 CT abd pelvis IV con only Stat Hospital Course (1) Abdominal pain: Patient CAME IN WITH generalized abdominal pain. Patient reports she had a similar episode last month during the beginning of her menstrual cycle. Her pain today has improved, and patient is requesting to be discharged. General surgery saw patient after reviewing CT scan images and reported that it is not a surgical abdomen. Patient tolerated clear diet and advanced as tolerated. Bilirrubin was elevated to 2.5 with direct only 0.3 Inflammatory markers were also negative. Gastro saw patient and recommends that patient have outpatient workup which may include a RUQ ultrasound and/or colonscopy. Given lack of insurance, patient will followup with [facility]. They have a list of specialists who could see patient free of charge. Patient also filled out medicaid form. will recommend repeat level either or Sunday of this week. Patient understands that workup is not complete but wants to be discharge and is ok with continuing this as an outpatient. Explained to patient to return to the hospital if her symptoms return. Specific etiology is difficult to ascertain at this time and patient will need further workup. Pain may also be from cannabis use. This was explained to the patient. CT abd pelvis IV con only CLINICAL HISTORY: abd pain w/ vomiting COMPARISON STUDY: None. TECHNIQUE: Patient was scanned in a dynamic helical fashion during intravenous administration of 89 cc of Optiray 320 A dose lowering technique was utilized adhering to the principles of ALARA. CT DOSE: 237.19 mGy.cm FINDINGS: Lower chest: The heart is normal in size and configuration, without pericardial effusion. The lung bases and pleural spaces are clear. Liver: The contrast-enhanced liver is normal in size, contour, and attenuation. There is no intrahepatic biliary ductal dilatation. The hepatic veins and portal veins are patent. Gallbladder: Unremarkable. Spleen: Normal in size and attenuation. Pancreas: Unremarkable. Adrenal glands: Unremarkable. Kidneys: There is symmetric renal cortical enhancement. The kidneys are normal in size without hydronephrosis. Bowel: Bowel evaluation is limited given the paucity of intra-abdominal fat and the lack of orally administered contrast. There are several mildly dilated fluid-filled small bowel loops. There is an unusual encapsulated cluster of small bowel loops within the central abdomen, suspicious for an internal hernia. Surgical consultation recommended. There is no evidence of acute diverticulitis. There are no findings viewed as suspicious for acute appendicitis. Peritoneum: There is mild mesenteric edema. There is trace free fluid. There is no free air. Vasculature: The abdominal aorta is normal in course and caliber. Adenopathy: None. Pelvic viscera: The bladder, and pelvic viscera are unremarkable. Skeletal structures: No destructive osseous lesions are seen. IMPRESSION: 1. Difficult study to interpret due to the paucity of intra-abdominal fat and the lack of orally administered contrast 2. Abnormal appearance of the bowel with mildly dilated fluid-filled small bowel loops, mesenteric edema, and findings suspicious for an internal hernia. Surgical consultation recommended. 3. Mild free fluid. No evidence of free air. No portal venous gas identified. Total Time Total Time Spent Total Time Spent (In Minutes): 32 Discharge Plan Discharge Items Patient Disposition: Home - Self-Care Reason For Visit: GENERALIZED ABDOMINAL PAIN Discharge Diagnosis: generalized abdominal pain Activity: Resume your previous activity Non-emergency contact: Primary Care Provider Call non-emergency contact if: you have any medication questions Follow-up/Referrals: PCP,NO [Physician] - Diet: Low Fiber Addtl Attending Provider Instructions: You came in with abdominal pain. It appears your abdominal pain improved on its own while you were here. You did show evidence of a possible internal hernia, however given that your pain subsided, no intervention by surgery was required. Will recommend you followup as an outpatient for US gallbladder and clonoscopy. -Though your symptoms aren't entirely consistent with abdominal pain seen with marijuana use, could try topical Capsaicin applied to the periumbilical area q 6 hours to see if this offers a benefit. Given that you have had issues w/ certain foods such as high fiber, bread, etc..will try to avoid these GI also recommended you start pantoprazole take 1 pill twice a day for 2 weeks, followed by once a day. Will recommend you followup with GI and PCP. If pain worsens, or if you develop fever, chills, nausea, vomiting, please return to the ED Pending Studies at Discharge: No Stand-Alone Forms: My [facility] fflick, Smoking Cessation Medications and DC Order Prescriptions: New pantoprazole 40 mg Tablet,Delayed Release (Dr/Ec) 40 mg PO BID Qty: 60 RF: 0 Zostrix 0.033 % Cream 1 applic EXT QID Qty: 1 RF: 0 Continued albuterol sulfate 90 mcg/actuation Hfa Aerosol Inhaler 2 puff INHALATION Q6H PRN (Reason: Sinus Symptoms) RF: 0 Discharge Orders: Discharge Order (Routine); Ordered 10/13/20 Ordered By: Devin Gupta Admission Data Admit Date/Time: 10/12/20 20:51 Attending Provider: Devin Gupta Admit Provider: Devin Gupta Primary Care Provider: [facility],Medicine Other Providers: Michael Winkler ; Devin Gupta ; Michael Levine Other Interventions: Discharge Summary Assessment (RN) Last Done: 10/13/20 13:45 Coding Level of Care Code D/C DAY MANAGEMENT >30 MINS Diagnoses Abdominal pain R10.9 Abdominal location: unspecified location
== END 2020-10-13 14:10 | disposition home or self-care (01) | DRG 392 ==
LOC: ED 15:18 → 3N 20:51